=== PATIENT | male | born 1960 | race Caucasian/White ===

== ENCOUNTER 2020-01-13 09:46 | Outpatient (CLI) | payer MEDICARE, MEDICAID, SELFPAY ==
--- NOTE | 2020-01-13 09:55 | USCV_ITS ---
BarbaManny Age: 59 Gender: M : 1960 Exam Date: 01/13/2020 10:30 Ordering Phys: Jeffery Ribeiro MD Technologist: Susi Vazquez [place]am [place] [facility] [place]: TRANSIENT NEUROLOGICAL CHANGES Risk Factors: Previous Vascular Surgery: None Right Brachial BP: / Left Brachial BP: / Right Left Velocity (cm/s) Spectral Plaque Velocity (cm/s) Spectral Plaque Syst/Diast Broadening Syst/Diast Broadening 72.80/ 23.20 Prox CCA 96.00 / 28.90 75.00/ 25.40 Mid CCA 62.10 / 19.40 52.00/ 15.50 Distal CCA 60.60 / 23.30 34.20/ 16.60 Prox ICA 58.30 / 20.20 72.20/ 31.10 Mid ICA 61.40 / 27.20 64.50/ 27.20 Distal ICA 76.10 / 34.20 72.20 ECA 58.30 0.96 ICA/CCA 0.79 Antegrade Vertebral Antegrade 31.00/ 11.70 cm/s 28.30/ 12.30 cm/s Tri Subclavian Bi 80.80 109.4 0 CONCLUSIONS Right ICA stenosis <50%. Left ICA stenosis <50%. Normal antegrade Doppler flow noted in the right vertebral artery. Normal antegrade Doppler flow noted in the left vertebral artery. Varun Nogueria MD (Electronically Signed) Final Date: 13 Jan 2020 12:46 S
--- NOTE | 2020-01-13 11:01 | MR_ITS ---
WS: [id number] MRI HEAD WITH CONTRAST TECHNIQUE: Sagittal T1, T2 axial, T2 axial FLAIR, axial susceptibility weighted imaging, axial diffus ion weighted images, and coronal T2 images were obtained. Pre and post-T1 axial and post T1 coronal i mages. ADC and FSPGR images. CLINICAL INFORMATION: TRANSIENT NEUROLOGICAL CHANGES COMPARISON: MRA April 19, [address] December 10, 2005 FINDINGS: No evidence of restricted diffusion to suggest acute ischemia. Ventricular system and basal cisterns are patent. Minimal small vessel changes. Mild parenchymal volume loss. Prominent perivascular space left basal ganglia. No hemosiderin on susceptibly weighted images. Normal optic chiasm and pituitary infundibulum. No abnormal intracranial enhancement. Normal visualiz ed dural venous sinuses. Normal posterior fossa. Normal vascular flow voids at the skull base. Mild m ucosal thickening paranasal sinuses. Partial opacification of the mastoid air cells. MR/MR head wo/w con [id number] IMPRESSION: 1. No evidence of restricted diffusion to suggest acute ischemia. Ventricular system and basal cisterns are patent. 2. Minimal small vessel changes. Mild parenchymal volume loss. 3. No abnormal gadolinium enhancement. No enhancing lesions. 4. Mild mucosal thickening in the paranasal sinuses. Small bilateral mastoid e ffusions.
== END 2020-01-13 09:47 | disposition home or self-care (01) ==
LOC: RAD 09:51
PROVIDERS: Visit Provider Family Medicine
DX: R29.90 Unspecified symptoms and signs involving the nervous system (principal); R41.82 Altered mental status, unspecified; I65.23 Occlusion and stenosis of bilateral carotid arteries
CPT/HCPCS: 70553; 93880; A9579

== ENCOUNTER → 2020-10-12 16:18 | Outpatient (BNVA) | payer MEDICARE, MEDICAID, SELFPAY | PROVIDERS: Visit Provider Nurse Practitioner Family | DX: Z20.828 Contact with and (suspected) exposure to other viral communicable diseases (principal) | CPT/HCPCS: 87635 ==

== ENCOUNTER → 2020-11-06 14:51 | Outpatient (BNVA) | payer MEDICARE, MEDICAID, SELFPAY | PROVIDERS: Visit Provider Family Medicine | DX: N40.0 Benign prostatic hyperplasia without lower urinary tract symptoms (principal); K21.9 Gastro-esophageal reflux disease without esophagitis; J32.9 Chronic sinusitis, unspecified; B96.89 Other specified bacterial agents as the cause of diseases classified elsewhere; Z13.1 Encounter for screening for diabetes mellitus; Z13.6 Encounter for screening for cardiovascular disorders | CPT/HCPCS: 80053; 80061 ==

== ENCOUNTER 2021-01-02 21:24 | Emergency (ER) | payer MEDICARE, MEDICAID, SELFPAY ==
[2021-01-02] VITALS (7 sets, daily range): BP systolic 85–131; BP diastolic 57–86; PULSE 60–79; RESP 12–18; TEMP 36.1; O2SAT 94–100; BMI 32.3
--- NOTE | 2021-01-02 21:37 | ED_ITS ---
HPI - General Adult General: Chief complaint: Abdominal Pain Stated complaint: UPPER ABD PAIN, VARIOUS UPPER BODY PAINS Time Seen by Provider: 01/02/21 21:33 History of Present Illness: HPI narrative: Patient states he was at work and day had some muscle cramps in his arms when he is trying to pull some nails out of boards. Said his fingers kind of locked up and and forearms were tender. Said just recently started new blood pressure medication. Patient thought maybe got low on fluids or something. Denies any other problems presently. MD complaint: Muscle cramps Onset (ago): hour(s) Location: upper extremity Severity: mild Pain Consistency: now resolved Associated symptoms: Reports no associated symptoms; Deny chest pain, dyspnea, headache(s), nausea, rash or vomiting Review of Systems Const: Denies: fever(s), chills or body aches Eyes: Denies: change in vision or blurry vision ENMT: Denies: throat pain or nasal congestion Card: Denies: chest pain or dyspnea on exertion Resp: Denies: dyspnea, productive cough or non-productive cough GI: Denies: abdominal pain, nausea or vomiting : Denies: difficulty urinating Musc: Reports: muscle cramps (Forearms and hands); Denies: extremity pain Skin/Breast: Denies: rash Neuro: Denies: headache(s) Psych: Denies: anxiety or depression Tyrell/Lymph: Denies: easy bruising PFS ED PFSH: Medical History (Updated 01/03/21 @ 01:34 by GUTIERREZ iVrk) Arthritis BPH (benign prostatic hyperplasia) 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 Fibromyalgia GERD (gastroesophageal reflux disease) Hx-TIA (transient ischemic attack) Hyperlipemia Hypertension Surgical History H/O vasectomy History of hernia surgery Social History Smoking and tobacco status: never smoked Alcohol intake: never Physical Exam Const: COMMON NORMALS: no acute distress, average body habitus and patient oriented x3 HENMT: COMMON NORMALS: normocephalic HEAD & SCALP: normal to inspection and normocephalic FACE & SINUS: normal facial exam Eye: COMMON NORMALS: conjunctivae normal GENERAL EYE: appearance normal, both eyes and all related structures CONJUNCTIVA: Yes conjunctivae normal Neck/C-Spine: COMMON NORMALS: no JVD Chest: COMMONS NORMALS: normal inspection of the chest Resp: COMMON NORMALS: normal respiratory effort and clear to auscultation bilaterally AUSCULTATION: clear to auscultation bilaterally Cardio: COMMON NORMALS: no JVD, regular rate and regular rhythm RATE: regular rate RHYTHM: regular rhythm GI: COMMON NORMALS: Normal to inspection, nondistended, normoactive bowel sounds present Extremity: COMMON NORMALS: normal to inspection and full ROM Neuro: COMMON NORMALS: patient oriented x3 and CN's II-XII intact bilaterally Course Vital Signs: Vital signs: Vital Signs Temperature 97.0 F L 01/02/21 21:26 Pulse Rate 70 01/03/21 01:03 Respiratory Rate 18 01/03/21 01:03 Blood Pressure 129/85 01/03/21 01:03 Pulse Oximetry 96 01/03/21 01:03 MDM - General Adult MDM Narrative: Medical decision making narrative: Patient had a vasovagal episode prior to starting the IV. Patient laid flat IV start fluids administered patient feeling much better now EKG was done showed sinus rhythm. Blood pressures improve pulse in the 60s. Discussed labs patient condition with Dr. Dutton said to order more fluids recheck labs. Patient feeling much better [id number] Lab Data: Labs: Lab Results 01/02/21 01/02/21 01/02/21 Range/Units 21:50 21:50 21:50 WBC 11.6 H (4.0-10.0) 10^3/ uL RBC 4.82 (4.1-5.3) 10^6/u L Hgb 14.5 (11.7-16.6) g/dL Hct 44.2 (42.0-52.0) % MCV 91.7 (80-94) fL MCH 30.1 (28.0-34.0) pg MCHC 32.8 (30.0-36.0) g/dL RDW 13.2 (12.1-15.1) % Plt Count 245 (130-400) 10^3/c mm MPV 10.7 H (7.4-10.4) fL Neut % (Auto) 69.4 % Lymph % (Auto) 14.7 % Glascock % (Auto) 12.0 % Eos % (Auto) 2.8 % Baso % (Auto) 0.5 % Neut # (Auto) 8.07 H (1.8-7.7) 10^3/u L Lymph # (Auto) 1.7 (0.8-4.8) 10^3/u L Glascock # (Auto) 1.4 H (0.2-0.9) 10^3/u L Eos # (Auto) 0.3 (0.0-0.8) 10^3/u L Baso # (Auto) 0.1 (0.0-0.1) 10^3/u L Nucleated RBC % (a uto) 0 % Nucleated RBCs # 0.0 /100WBC Sodium 133 L (136-145) mmol/L Potassium 3.8 (3.5-5.1) mmol/L Chloride 99 (98-107) mmol/L Carbon Dioxide 19 L (22-29) mmol/L Anion Gap 18.8 (5-19) BUN 32 H (8-23) mg/dL Creatinine 1.8 H (0.7-1.2) mg/dL GFR Calculation 38.7 L (90-130) mL/min Glucose 126 H (65-115) mg/dL Calculated Osmolal ity 284 L (285-295) mOsm/k g Calcium 9.2 (8.5-10.5) mg/dL Total Bilirubin 0.3 (0.15-1.2) mg/dL AST 31 (0-40) U/L ALT 26 (0-41) U/L Alkaline Phosphata se 82 (40-130) IU/L Creatine Kinase 296 (39-308) U/L Total Protein 7.2 (6.6-8.7) g/dL Albumin 4.3 (3.5-5.2) g/dL Globulin 2.9 (1.3-4.6) g/dL Urine Color (Yellow) Urine Appearance (CLEAR) Urine pH (5-7) Ur Specific Gravit y (1.005-1.030) Urine Protein (Negative) Urine Glucose (UA) (Normal) Urine Ketones (Negative) Urine Blood (Negative) Urine Nitrate (Negative) Urine Bilirubin (Negative) Urine Urobilinogen (Negative) mg/dL Ur Leukocyte Leslie ase (Negative) 01/02/21 01/03/21 01/03/21 Range/Units 23:00 00:53 00:59 WBC (4.0-10.0) 10^3/ uL RBC (4.1-5.3) 10^6/u L Hgb (11.7-16.6) g/dL Hct (42.0-52.0) % MCV (80-94) fL MCH (28.0-34.0) pg MCHC (30.0-36.0) g/dL RDW (12.1-15.1) % Plt Count (130-400) 10^3/c mm MPV (7.4-10.4) fL Neut % (Auto) % Lymph % (Auto) % Glascock % (Auto) % Eos % (Auto) % Baso % (Auto) % Neut # (Auto) (1.8-7.7) 10^3/u L Lymph # (Auto) (0.8-4.8) 10^3/u L Glascock # (Auto) (0.2-0.9) 10^3/u L Eos # (Auto) (0.0-0.8) 10^3/u L Baso # (Auto) (0.0-0.1) 10^3/u L Nucleated RBC % (a uto) % Nucleated RBCs # /100WBC Sodium 135 L 137 (136-145) mmol/L Potassium 3.5 3.8 (3.5-5.1) mmol/L Chloride 99 105 (98-107) mmol/L Carbon Dioxide 22 23 (22-29) mmol/L Anion Gap 17.5 12.8 (5-19) BUN 31 H 28 H (8-23) mg/dL Creatinine 1.9 H 1.4 H (0.7-1.2) mg/dL GFR Calculation 36.3 L 51.7 L (90-130) mL/min Glucose 112 107 (65-115) mg/dL Calculated Osmolal ity 287 290 (285-295) mOsm/k g Calcium 9.3 7.8 L (8.5-10.5) mg/dL Total Bilirubin (0.15-1.2) mg/dL AST (0-40) U/L ALT (0-41) U/L Alkaline Phosphata se (40-130) IU/L Creatine Kinase 276 238 (39-308) U/L Total Protein (6.6-8.7) g/dL Albumin (3.5-5.2) g/dL Globulin (1.3-4.6) g/dL Urine Color Yellow (Yellow) Urine Appearance Clear (CLEAR) Urine pH 5 (5-7) Ur Specific Gravit y 1.010 (1.005-1.030) Urine Protein Neg (Negative) Urine Glucose (UA) Norm (Normal) Urine Ketones Negative (Negative) Urine Blood Neg (Negative) Urine Nitrate Negative (Negative) Urine Bilirubin Neg (Negative) Urine Urobilinogen Norm (Negative) mg/dL Ur Leukocyte Leslie ase Negative (Negative) EKG Data^: EKG 1: EKG interpretation date: 01/02/21 EKG interpretation time: 22:56 Computer generated interpretation: Normal sinus rhythm ventricular rate 65 bpm RI interval 138 ms QRS duration 98 ms QT 408 Discharge Plan Discharge Patient Disposition: Home Clinical Impression: Acute dehydration Condition: Stable Prescriptions: No Action diclofenac sodium 75 mg tablet,delayed release (DR/EC) 75 mg PO BID 30 Days Qty: 60 RF: 2 duloxetine 60 mg capsule,delayed release(DR/EC) 60 mg PO DAILY 30 Days Qty: 30 RF: 2 gabapentin 800 mg tablet 800 mg PO TID 30 Days Qty: 90 RF: 2 finasteride 5 mg tablet 5 mg PO DAILY 30 Days Qty: 30 RF: 2 omeprazole 40 mg capsule,delayed release(DR/EC) 40 mg PO DAILY 30 Days Qty: 30 RF: 5 lisinopril-hydrochlorothiazide 10-12.5 mg tablet 1 tab PO DAILY 30 Days Qty: 30 RF: 0 tramadol 50 mg tablet 50 mg PO DAILY PRN (Reason: severe pain) 7 Days Qty: 7 RF: 0 omega-3 fatty acids [Fish Oil Concentrate] 1,000 mg capsule 1,000 mg PO BID RF: 0 Discharge Orders: Discharge ED (Routine); Ordered 01/03/21 Ordered By: Damion Richards Discharge Diet: Usual diet and As Directed Discharge Activity: Increase activity as tolerated Patient Instructions: Dehydration (ED) Activity Restrictions/Additional Instructions: Make sure you drink plenty of fluids. Try to drink water as much as possible instead of tea or other liquids. Follow-up your family medical provider in a week for recheck your lab work. Coding Level of Care Code ED Unemployment Insurance Director for Chg Fwd Exam Comprehensive
[2021-01-02 21:59] LABS: Basophils # 0.1 10^3/uL (0.0-0.1); Basophils % 0.5 %; Eosinophils # 0.3 10^3/uL (0.0-0.8); Eosinophils % 2.8 %; Hematocrit 44.2 % (42.0-52.0); Hemoglobin 14.5 g/dL (11.7-16.6); Lymphocytes # 1.7 10^3/uL (0.8-4.8); Lymphocytes % 14.7 %; Mean Corpuscular HGB Conc 32.8 g/dL (30.0-36.0); Mean Corpuscular Hemoglobin 30.1 pg (28.0-34.0); Mean Corpuscular Volume 91.7 fL (80-94); Mean Platelet Volume 10.7 fL (7.4-10.4); Monocytes # 1.4 10^3/uL (0.2-0.9); Neutrophils # 8.07 10^3/uL (1.8-7.7); Neutrophils % 69.4 %; Nucleated Red Blood Cells % 0 %; Platelet Count 245 10^3/cmm (130-400); Red Blood Count 4.82 10^6/uL (4.1-5.3); Red Cell Distribution Width 13.2 % (12.1-15.1); White Blood Count 11.6 10^3/uL (4.0-10.0)
[2021-01-02 22:29] LABS: Alanine Aminotransferase 26 U/L (0-41); Albumin Level 4.3 g/dL (3.5-5.2); Alkaline Phosphatase 82 IU/L (40-130); Anion Gap 18.8 (5-19); Aspartate Amino Transferase 31 U/L (0-40); Blood Urea Nitrogen 32 mg/dL (8-23); Calcium 9.2 mg/dL (8.5-10.5); Carbon Dioxide 19 mmol/L (22-29); Chloride 99 mmol/L (98-107); Globulin 2.9 g/dL (1.3-4.6); Glomerular Filtration Rate 38.7 mL/min (90-130); Glucose 126 mg/dL (65-115); Osmolality Calculated 284 mOsm/kg (285-295); Potassium 3.8 mmol/L (3.5-5.1); Sodium 133 mmol/L (136-145); Total Bilirubin 0.3 mg/dL (0.15-1.2); Total Protein 7.2 g/dL (6.6-8.7)
[2021-01-02] MEDS: sodium chloride 0.9% 1,000 ML 999 ML IV ×2 (22:47→23:34)
--- NOTE | 2021-01-02 22:51 | ECG_ITS ---
[facility] Test Date: 2021-01-02 Pat Name: Manny Barba Department: Room: Gender: Male [employer] Product Consultant: : 1960 Requested By: Damion Richards Order Number: [id number] Jennifer MD: Ramone Shearer M.D. Measurements Intervals [place] Rate: 65 P: -35 OR: 138 QRS: 40 QRSD: 98 T: 23 QT: 408 QTc: 427 Interpretive Statements SINUS RHYTHM No previous ECG available for comparison Electronically Signed On 01-03-2021 18:28:32 CDT by Ramone Shearer M.D. [id number]
[2021-01-02 22:52] LABS: Creatine Phosphokinase 296 U/L (39-308)
[2021-01-02 23:40] LABS: Anion Gap 17.5 (5-19); Blood Urea Nitrogen 31 mg/dL (8-23); Calcium 9.3 mg/dL (8.5-10.5); Carbon Dioxide 22 mmol/L (22-29); Chloride 99 mmol/L (98-107); Creatine Phosphokinase 276 U/L (39-308); Glomerular Filtration Rate 36.3 mL/min (90-130); Glucose 112 mg/dL (65-115); Osmolality Calculated 287 mOsm/kg (285-295); Potassium 3.5 mmol/L (3.5-5.1); Sodium 135 mmol/L (136-145)
[2021-01-03] MEDS: sodium chloride 0.9% 1,000 ML 1500 ML IV (00:01)
[2021-01-03 00:02] VITALS: BP 111/66; PULSE 66; RESP 15; O2SAT 99
[2021-01-03 00:58] LABS: Add Urine Microscopic? NO; Charge for UA Resulting for Rev
[2021-01-03 01:00] LABS: Bilirubin Urine Neg (Negative); Blood Urine Neg (Negative); Glucose Urine UA Norm (Normal); Ketones Urine Negative (Negative); Leukocyte Esterase Urine Negative (Negative); Nitrate Urine Negative (Negative); Protein Urine Neg (Negative); Urine Appearance Clear (CLEAR); Urine Color Yellow (Yellow); Urobilinogen Urine Norm (Negative); pH Urine 5 (5-7)
[2021-01-03 01:03] VITALS: BP 129/85; PULSE 70; RESP 18; O2SAT 96
[2021-01-03 01:21] LABS: Anion Gap 12.8 (5-19); Blood Urea Nitrogen 28 mg/dL (8-23); Calcium 7.8 mg/dL (8.5-10.5); Carbon Dioxide 23 mmol/L (22-29); Chloride 105 mmol/L (98-107); Creatine Phosphokinase 238 U/L (39-308); Glomerular Filtration Rate 51.7 mL/min (90-130); Glucose 107 mg/dL (65-115); Osmolality Calculated 290 mOsm/kg (285-295); Potassium 3.8 mmol/L (3.5-5.1); Sodium 137 mmol/L (136-145)
== END 2021-01-03 01:41 | disposition home or self-care (01) ==
PROVIDERS: Emergency Provider Nurse Practitioner Family
DX: E86.0 Dehydration (principal); Z86.73 Personal history of transient ischemic attack (TIA), and cerebral infarction without residual deficits; E78.5 Hyperlipidemia, unspecified; I10 Essential (primary) hypertension
CPT/HCPCS: 36415; 80048; 80053; 81003; 82550; 85025; 93005; 96360; 96361; 99283; J7030

== ENCOUNTER → 2021-01-23 15:35 | Outpatient (BNVA) | payer MEDICARE, MEDICAID, SELFPAY | PROVIDERS: PCP Family Medicine; Visit Provider Family Medicine | DX: I10 Essential (primary) hypertension (principal); R74.8 Abnormal levels of other serum enzymes; Z12.5 Encounter for screening for malignant neoplasm of prostate | CPT/HCPCS: 80048; 84153 ==

== ENCOUNTER → 2021-01-29 08:26 | Outpatient (BNVA) | payer MEDICARE, MEDICAID, SELFPAY | PROVIDERS: PCP Family Medicine; Visit Provider Anesthesiology Pain Medicine | DX: Z02.89 Encounter for other administrative examinations (principal); M47.816 Spondylosis without myelopathy or radiculopathy, lumbar region; M48.062 Spinal stenosis, lumbar region with neurogenic claudication; M51.16 Intervertebral disc disorders with radiculopathy, lumbar region; M54.9 Dorsalgia, unspecified | CPT/HCPCS: 99204 ==

== ENCOUNTER 2021-02-19 14:48 | Outpatient (CLI) | payer MEDICARE, MEDICAID, SELFPAY ==
--- NOTE | 2021-02-19 14:57 | MR_ITS ---
WS: [id number] MRI LUMBAR SPINE NONCONTRAST HISTORY: M48.062 - Spinal stenosis, chronic low back pain radiating down both legs. COMPARISON: 01/01/2018 TECHNIQUE: Sagittal and axial multisequence imaging is submitted. Mild lumbar curvature similar to the prior study. No acute marrow edema or fractures. Moderate disc s pace narrowing and desiccation at L5-S1. Conus tapers normally and ends at L1. L1-L2: Extruded subligamentous disc extending into the RIGHT subarticular recess above the disc space is no longer present. This disc has probably been resorbed since the prior examination. There is a s mall disc protrusion in the RIGHT foramen causing mild encroachment and narrowing of the RIGHT subart icular recess. There is mild encroachment upon the L2 traversing nerve root. No high-grade stenosis. L2-L3: Mild annular disc bulging. LEFT paracentral disc protrusion with annular fissure has slightly increased in size and does abut the LEFT L3 nerve root. Slightly greater contact and mild LEFT subart icular recess narrowing as compared to the prior study. L3-L4: Diffuse annular disc bulging. There is a small LEFT subarticular protrusion with minimal impin gement on the traversing L4 nerve root. Similar to the prior study. L4-L5: Mild annular disc bulging and osteophytic ridging. Disc and osteophyte disease encroaching upo n the ventral thecal sac and narrowing the subarticular recesses. There is mild central, bilateral vela barticular recess and foraminal stenosis. Mild progression since the prior study. L5-S1: Moderate annular disc bulging with osteophytic ridging. Disc osteophyte material encroaching u asia the S1 and L5 nerve roots bilaterally. There is mild to moderate central and bilateral foraminal stenosis. Slight improvement in the RIGHT subarticular disc protrusion. Paravertebral soft tissues are normal. MR/MR lumbar spine wo con* [id number] IMPRESSION: 1. Multilevel degenerative disc disease and facet arthritis. 2. Previously described extruded disc into the RIGHT subarticular recess at L1 -2 has significantly improved. There is only minimal disc protrusion now presen t. The remaining disc protrusion is causing mild encroachment upon the RIGHT L2 traversing nerve root. 3. Mild central, bilateral subarticular recess and foraminal stenosis at L4-5. This stenoses and disc/osteophyte disease has slightly progressed. 4. Mild to moderate central and bilateral foraminal stenosis at L5-S1. Slight improvement in the RIGHT subarticular disc protrusion although there is still d isc encroachment upon the nerve root. Greater on the RIGHT than the LEFT. 5. Slight increase in size of the LEFT paracentral disc protrusion at L2-3 abu tting the LEFT L3 nerve root. 6. Small LEFT subarticular disc protrusion at L3-4 contacting the traversing L 4 nerve root. Unchanged.
== END 2021-02-19 14:49 | disposition home or self-care (01) ==
PROVIDERS: PCP Family Medicine; Visit Provider Anesthesiology Pain Medicine
DX: M48.062 Spinal stenosis, lumbar region with neurogenic claudication (principal); M51.36 Other intervertebral disc degeneration, lumbar region; M47.816 Spondylosis without myelopathy or radiculopathy, lumbar region; M48.061 Spinal stenosis, lumbar region without neurogenic claudication; M48.07 Spinal stenosis, lumbosacral region; M51.26 Other intervertebral disc displacement, lumbar region
CPT/HCPCS: 72148

== ENCOUNTER → 2021-02-26 08:22 | Outpatient (BNVA) | payer MEDICARE, MEDICAID, SELFPAY | PROVIDERS: PCP Family Medicine; Visit Provider Anesthesiology Pain Medicine | DX: M54.9 Dorsalgia, unspecified (principal); M51.16 Intervertebral disc disorders with radiculopathy, lumbar region; M47.816 Spondylosis without myelopathy or radiculopathy, lumbar region | CPT/HCPCS: 99214 ==

== ENCOUNTER → 2021-09-03 13:18 | Outpatient (BNVA) | payer MEDICARE, MEDICAID, SELFPAY | PROVIDERS: PCP Family Medicine; Visit Provider Nurse Practitioner Family | DX: Z20.822 Contact with and (suspected) exposure to COVID-19 (principal) | CPT/HCPCS: 87635 ==

== ENCOUNTER → 2021-11-07 14:05 | Outpatient (BNVA) | payer MEDICARE, MEDICAID, SELFPAY | PROVIDERS: PCP Family Medicine; Visit Provider Family Medicine | DX: K21.9 Gastro-esophageal reflux disease without esophagitis (principal); I10 Essential (primary) hypertension; N40.0 Benign prostatic hyperplasia without lower urinary tract symptoms; M79.7 Fibromyalgia; M19.90 Unspecified osteoarthritis, unspecified site; N40.1 Benign prostatic hyperplasia with lower urinary tract symptoms; R39.12 Poor urinary stream; Z12.5 Encounter for screening for malignant neoplasm of prostate; E78.1 Pure hyperglyceridemia; Z20.822 Contact with and (suspected) exposure to COVID-19 | CPT/HCPCS: 80053; 80061; 84153; 87635 ==

== ENCOUNTER → 2021-11-26 15:32 | Outpatient (BNVA) | payer MEDICARE, MEDICAID, SELFPAY | PROVIDERS: PCP Family Medicine; Visit Provider Nurse Practitioner Family | DX: M19.011 Primary osteoarthritis, right shoulder (principal); M25.511 Pain in right shoulder; M79.645 Pain in left finger(s); G89.29 Other chronic pain | CPT/HCPCS: 73030; 73130 ==

== ENCOUNTER → 2022-03-04 09:56 | Outpatient (BNVA) | payer MEDICARE, MEDICAID, SELFPAY | PROVIDERS: PCP Family Medicine; Visit Provider Emergency Medicine | DX: Z20.822 Contact with and (suspected) exposure to COVID-19 (principal); B34.9 Viral infection, unspecified | CPT/HCPCS: 87635 ==

== ENCOUNTER → 2022-04-11 08:34 | Outpatient (BNVA) | payer MEDICARE, MEDICAID, SELFPAY | PROVIDERS: PCP Family Medicine; Visit Provider Anesthesiology Pain Medicine | DX: M51.16 Intervertebral disc disorders with radiculopathy, lumbar region (principal); M47.816 Spondylosis without myelopathy or radiculopathy, lumbar region; M79.604 Pain in right leg; M79.605 Pain in left leg | CPT/HCPCS: 99214 ==

== ENCOUNTER → 2022-04-16 14:28 | Outpatient (BNVA) | payer MEDICARE, MEDICAID, SELFPAY | PROVIDERS: PCP Family Medicine; Visit Provider Family Medicine | DX: M79.7 Fibromyalgia (principal); N40.0 Benign prostatic hyperplasia without lower urinary tract symptoms; M19.90 Unspecified osteoarthritis, unspecified site; I10 Essential (primary) hypertension; K21.9 Gastro-esophageal reflux disease without esophagitis; M51.16 Intervertebral disc disorders with radiculopathy, lumbar region; E78.1 Pure hyperglyceridemia; N40.1 Benign prostatic hyperplasia with lower urinary tract symptoms; R39.12 Poor urinary stream | CPT/HCPCS: 80053 ==

== ENCOUNTER → 2022-05-02 13:31 | Outpatient (BNVA) | payer MEDICARE, MEDICAID, SELFPAY | PROVIDERS: PCP Family Medicine; Visit Provider Orthopaedic Surgery | DX: M48.061 Spinal stenosis, lumbar region without neurogenic claudication (principal); M54.2 Cervicalgia; M43.12 Spondylolisthesis, cervical region; M48.02 Spinal stenosis, cervical region; M48.07 Spinal stenosis, lumbosacral region; M43.16 Spondylolisthesis, lumbar region | CPT/HCPCS: 72050; 72110; 99204 ==

== ENCOUNTER 2022-05-17 06:00 | Outpatient (CLI) | payer MEDICARE, MEDICAID, SELFPAY | END 2022-05-17 06:01 | disposition home or self-care (01) | LOC: RT 06-06 11:02 | PROVIDERS: PCP Family Medicine; Visit Provider Orthopaedic Surgery | DX: Z01.89 Encounter for other specified special examinations (principal) | CPT/HCPCS: 93005 ==

== ENCOUNTER 2022-05-24 08:02 | Day surgery (SDC) | payer MEDICARE, MEDICAID, SELFPAY ==
[2022-05-17 11:00] VITALS: BMI 32.1
--- NOTE | 2022-05-17 11:22 | ECG_ITS ---
[facility] Test Date: 2022-05-17 Pat Name: Manny Barba Department: Room: Gender: Male [employer] Operator: : 1960 Requested By: Tc Diaz Order Number: [id number] Jennifer MD: Ramone Shearer M.D. Measurements Intervals [place] Rate: 72 P: 46 HI: 186 QRS: 26 QRSD: 103 T: 15 QT: 359 QTc: 393 Interpretive Statements SINUS RHYTHM WITH SINUS ARRHYTHMIA Compared to ECG 01/02/2021 22:47:42 No significant changes Electronically Signed On 05-17-2022 14:38:59 CDT by Ramone Shearer M.D. [id number]
[2022-05-17 11:55] LABS: Basophils % 0.6 %; Eosinophils # 0.4 10^3/uL (0.0-0.8); Eosinophils % 5.4 %; Hemoglobin 14.5 g/dL (11.7-16.6); Lymphocytes # 1.7 10^3/uL (0.8-4.8); Lymphocytes % 23.7 %; Mean Corpuscular Hemoglobin 30.7 pg (28.0-34.0); Mean Platelet Volume 10.6 fL (7.4-10.4); Monocytes # 0.8 10^3/uL (0.2-0.9); Monocytes % 11.2 %; Neutrophils # 4.18 10^3/uL (1.8-7.7); Neutrophils % 58.4 %; Nucleated Red Blood Cells % 0 %; Platelet Count 224 10^3/cmm (130-400); Red Blood Count 4.73 10^6/uL (4.1-5.3); Red Cell Distribution Width 13.7 % (12.1-15.1); White Blood Count 7.2 10^3/uL (4.0-10.0)
[2022-05-17 12:19] LABS: Blood Urea Nitrogen 21 mg/dL (8-23); Calcium 9.5 mg/dL (8.5-10.5); Carbon Dioxide 23 mmol/L (22-29); Chloride 100 mmol/L (98-107); Glomerular Filtration Rate 114.3 mL/min (90-130); Glucose 114 mg/dL (65-115); Osmolality Calculated 282 mOsm/kg (285-295); Sodium 134 mmol/L (136-145)
[2022-05-17 12:20] LABS: Anion Gap 15.2 (5-19); Potassium 4.2 mmol/L (3.5-5.1)
--- NOTE | 2022-05-17 16:19 | P.ANESASSM_ITS ---
Pre-Anesthetic Assessment Height/Weight: Height 1.73 m Weight 95.708 kg Operation Date: 05/24/22 08:20 Proposed Procedures p Lumbar Spine Decompression L4/5 L5/S1 77654/15070/M48.062(Bilateral) - Jak Slater, Familial anesthetic complications: none Was Beta Richard taken within 24 hours: N/A Was Clonidine taken within 24 hours: N/A Social No alcohol and No tobacco Exam alert, oriented x 3, clear to auscultation bilaterally and regular rate & rhythm Airway Submandibular: within normal limits Cervical ROM: Other (limited extension) Mallampati: Class II Dentition: chipped CV/HEM Coronary Artery Disease, Hypertension and Myocardial Infarction GI Gastroesophageal Reflux Disease Musc/skel Fibromyalgia, Lower Back Pain and Osteoarthritis/DJD Neuropsych Transient Ischemic Attack Anesthetic Plan ASA status: 3 Anesthesia: General Medications/Allergies Home Medications Medication Instructions Recorded Confirmed Last Taken Type omega-3 fatty acids 1,000 mg 1,000 mg PO DAILY 11/18/20 05/17/22 Unknown History capsule (Fish Oil Concentrate) acetaminophen 325 mg capsule 325 mg PO QID PRN Pain 03/04/22 05/17/22 Unknown History (Tylenol) aspirin 81 mg chewable tablet 81 mg PO DAILY 03/04/22 05/17/22 05/09/22 History albuterol sulfate 90 mcg/actuation 2 puff inhalation Q6H PRN 03/07/22 05/17/22 Unknown Rx aerosol inhaler shortness of breath or wheezing #8.5 grams methocarbamol 750 mg tablet 750 mg PO TID PRN back pain 14 03/19/22 05/17/22 Unknown Rx days #42 tabs finasteride 5 mg tablet 5 mg PO DAILY 90 days #90 tabs 04/16/22 05/17/22 Unknown Rx lisinopril 10 1 tab PO DAILY 90 days #90 tabs 04/16/22 05/17/22 Unknown Rx mg-hydrochlorothiazide 12.5 mg tablet omeprazole 40 mg capsule,delayed 40 mg PO DAILY 90 days #90 caps 04/16/22 05/17/22 Unknown Rx release ascorbic acid (vitamin C) 1,000 mg 1,000 mg PO DAILY 05/17/22 05/17/22 Unknown History tablet (Vitamin C) diclofenac sodium 75 mg 75 mg PO BID 05/17/22 05/17/22 Unknown History tablet,delayed release duloxetine 60 mg capsule,delayed 60 mg PO DAILY 05/17/22 05/17/22 Unknown History release (Cymbalta) gabapentin 800 mg tablet 800 mg PO TID 05/17/22 05/17/22 Unknown History Allergies Allergy/AdvReac Type Severity Reaction Status Date / Time No Known Allergies Allergy Verified 05/17/22 10:52 [facility] Anesthesia Medical History Arthritis BPH (benign prostatic hyperplasia) 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 Fibromyalgia GERD (gastroesophageal reflux disease) Hx-TIA (transient ischemic attack) Hyperlipemia Hypertension Surgical History H/O vasectomy History of hernia surgery Social History Smoking and tobacco status: never smoked Alcohol intake: never Data Anesthesia : 05/17/22 11:15 05/17/22 11:15 Short CBC 05/17/22 Range/Units 11:15 WBC 7.2 (4.0-10.0) 10^3/uL Hgb 14.5 (11.7-16.6) g/dL Hct 44.0 (42.0-52.0) % MCV 93.0 (80-94) fl Plt Count 224 (130-400) 10^3/cmm Neut % (Auto) 58.4 % Neut # (Auto) 4.18 (1.8-7.7) 10^3/uL BMP 05/17/22 11:15 Sodium 134 L Potassium 4.2 Chloride 100 Carbon Dioxide 23 BUN 21 Creatinine 0.7 Glucose 114 Calcium 9.5 Cardiac Studies: No Data to Display
[2022-05-24] VITALS (14 sets, daily range): BP systolic 101–126; BP diastolic 57–77; PULSE 65–88; RESP 18–21; TEMP 36.1–36.7; O2SAT 92–95
--- NOTE | 2022-05-24 | XR_ITS ---
WS: [id number] Lumbar spine, C-arm fluoroscopy views, 05/24/2022 Clinical Data: bilateral L3-L4....L4-L5 decompression Comparison: None. Findings: Dr. Slater performed a lumbar decompression XR/XR lumbar spine 1V [id number] Impression: Lumbar decompression.
--- NOTE | 2022-05-24 | SCC_ITS ---
Procedure done: 1. L3/4 laminectomy with partial facetectomies 2. L4/5 laminectomy with partial facetectomies 33.8 seconds of fluoroscopic guidance, for a cumulative dose of 19.12 mGy, was provided to Dr. Slater by the radiology department. C-arm images of the lumbar spine were saved for the patient's permanent record. [facility]
[2022-05-24] MEDS: sodium chloride 0.9% 1,000 ML 30 ML IV (08:26)
--- NOTE | 2022-05-24 08:53 | P.ANESUD_ITS ---
Pre-Anesthetic Update Pre-Anesthetic Assessment: Date of Surgery/Procedure: 05/24/22 Preop Phylicia gnosis: Lumbar stenosis, lumbar radiculopathy Proposed Procedure: Operation Date: 05/24/22 09:40 Proposed Procedures p Lumbar Spine Decompression L4/5 L5/S1 66589/51806/M48.062(Bilateral) - Jak Slater, DO Any changes to Pre-Anesthetic Assessment?: No Last Intake: Intake Last Liquid Date 05/23/22 Last Liquid Time 17:00 Last Solid Date 05/23/22 Last Solid Time 17:00 Vitals: Oxygen Delivery Me thod 05/24/22 08:13 Exam: Pre-Anes Outpt Exam: alert, oriented x 3, clear to auscultation bilaterally and regular rate & rhythm Cardiac Studies: No Data to Display
--- NOTE | 2022-05-24 10:00 | W.PM.OPSUD ---
Surgery/Procedure H&P Update DATE OF PROCEDURE: May 24, 2022 DATE H&P PERFORMED: 05/02/22 H&P UPDATE INFORMATION: I have reviewed H&P completed within last 30 days, I have examined patient prior to procedure and No changes to prior documentation PREOP DIAGNOSIS: Lumbar stenosis, lumbar radiculopathy PLANNED PROCEDURE: Operation Date: 05/24/22 09:40 Proposed Procedures p Lumbar Spine Decompression L4/5 L5/S1 27609/44555/M48.062(Bilateral) - Jak Slater DO
[2022-05-24] MEDS: ceFAZolin 2,000 MG in sodium chloride 0.9% (plus) 50 ML 100 MG IV (10:23)
--- NOTE | 2022-05-24 11:47 | P.OP_ITS ---
Operative Report Date of procedure: May 24, 2022 Pre-op diagnosis: Preop Diagnosis Lumbar stenosis, lumbar radiculopathy Post-op diagnosis: same Procedure done: 1. L3/4 laminectomy with partial facetectomies 2. L4/5 laminectomy with partial facetectomies Surgeon: Jak Slater Waste And Batting Waste Chopper: Jone Taveras Estimated blood loss (mL): 5 Procedure: 1. L3/4 laminectomy with partial facetectomies 2. L4/5 laminectomy with partial facetectomies Patient is brought to the operative suite. After undergoing anesthesia they are placed in the prone position. All areas of impingement are well padded. Patient is then prepped and draped in the normal sterile fashion. A skin incision is made over the L3/4 level. This is confirmed under c-arm guidance. A series of dilators are passed and the tubular retractor is docked on the L 3 lamina. A bovie is used to clear the soft tissue off the lamina and the L3/4 facet joint. A high speed salina is then used to perform the laminectomy and take down the medial aspect of the L 3/4 facet joint. A kerrison rongeure was then used to take down the remaining lamina and smooth the edged of the laminectomy up to the point where the ligamentum flavum attaches. Attention was then brought to the medial aspect of the facet joint. The remaining medial aspect of the superior and inferior aspect of the facet joint were taken down with the kerrison from the pedicle of L 3 to L 4. The facet joint had significant hypertrophy. Attention was then brought to the Ligamentum Flavum. The ligament was taken down from the lamina of L 3 to L 4 and out medially to the remaining facet joint. The ligament was thickened. The dura was then exposed. The dura was in good repair. The L 3 nerve was then traced with a curette out the L 3/4 foramen and found to be adequately decompressed. The L 4 nerve was traced with a curette around the L 4 pedicle. The lateral recess was opened with a kerrison helping to further decompress the L 4 nerve. The tubular retractor was then tilted to the contralateral side. The bovie was used to take down the soft tissue on the spinous process. The high speed salina was used to take down the spinous process and then the contralateral lamina of L 3. The kerrison rongeur was used to take down the remaining lamina to the point where the ligamentum flavum attached and the ligamentum flavum was taken down from L 3 to L 4. The kerrison rongeur was then used to reach across and take down the medial aspect of the contralateral L 3/4 facet joint.The currete was used to trace the contralateral L 3 nerve out the L 3/4 foramen to make sure it was decompressed adequatesly and the L 4 was traced around the L 4 pedicle. The lateral recess was opened further with the kerrison to ensure the L 4 is adequately decompressed. Wound is then irrigated copiously with saline and surgiflo is used to stop any bleeding. The tubular retractor is removed and the A skin incision is made over the L4/5 level. This is confirmed under c-arm guidance. A series of dilators are passed and the tubular retractor is docked on the L 4 lamina. A bovie is used to clear the soft tissue off the lamina and the L 4/5 facet joint. A high speed salina is then used to perform the laminectomy and take down the medial aspect of the L 4/5 facet joint. A kerrison rongeure was then used to take down the remaining lamina and smooth the edged of the laminectomy up to the point where the ligamentum flavum attaches. Attention was then brought to the medial aspect of the facet joint. The remaining medial aspect of the superior and inferior aspect of the facet joint were taken down with the kerrison from the pedicle of L 4 to L 5. The facet joint had significant hypertrophy. Attention was then brought to the Ligamentum Flavum. The ligament was taken down from the lamina of L 4 to L 5 and out medially to the remaining facet joint. The ligament was thickened. The dura was then exposed. The dura was in good repair. The L 4 nerve was then traced with a curette out the L 4/5 foramen and found to be adequately decompressed. The L 5 nerve was traced with a curette around the L 5 pedicle. The lateral recess was opened with a kerrison helping to further decompress the L 5 nerve. The tubular retractor was then tilted to the contralateral side. The bovie was used to take down the soft tissue on the spinous process. The high speed salina was used to take down the spinous process and then the contralateral lamina of L 4. The kerrison rongeur was used to take down the remaining lamina to the point where the ligamentum flavum attached and the ligamentum flavum was taken down from L 4 to L 5. The kerrison rongeur was then used to reach across and take down the medial aspect of the contralateral L 4/5 facet joint.The currete was used to trace the contralateral L 4 nerve out the L 4/5 foramen to make sure it was decompressed adequatesly and the L 5 was traced around the L 5 pedicle. The lateral recess was opened further with the kerrison to ensure the L 5 is adequately decompressed. Wound is then irrigated copiously with saline and surgiflo is used to stop any bleeding. The tubular retractor is removed and the wound is closed with vicryl and monocryl suture. Glue is then used to protect the wound. A sterile dressing is then placed. Patient was then placed in the supine position and transferred to the PACU in stable condition.
[2022-05-24] MEDS: fentaNYL 50 mcg/mL INJ 2mL IVP ×2 (12:05→12:20)
[2022-05-24] MEDS: HYDROcodone-acetaminophen 5-325 mg Tablet 1 TAB PO ×2 (12:50→13:48)
--- NOTE | 2022-05-24 13:51 | ANE.PACU2 ---
Inpatient post-anesthesia follow up: Airway intact: Yes Vital signs: Temperature 98.0 F Pulse Rate 88 Respiratory Rate 18 Blood Pressure 112/74 Pulse Oximetry 95 Oxygen Delivery Me thod Room Air Oxygen Flow Rate Fraction of Inspir ed Oxygen Hydration adequate: Yes Nausea and vomiting: No Pain level: 4 Mental status: Baseline
== END 2022-05-24 14:15 | disposition home or self-care (01) ==
PROVIDERS: Anesthesiology; PCP Family Medicine; Visit Provider Orthopaedic Surgery
PROC: (CPT 63005; principal; 2022-05-24 09:30)
DX: M48.061 Spinal stenosis, lumbar region without neurogenic claudication (principal); I25.10 Atherosclerotic heart disease of native coronary artery without angina pectoris; I10 Essential (primary) hypertension; I25.2 Old myocardial infarction; K21.9 Gastro-esophageal reflux disease without esophagitis; M79.7 Fibromyalgia; Z86.73 Personal history of transient ischemic attack (TIA), and cerebral infarction without residual deficits; Z79.82 Long term (current) use of aspirin; M19.90 Unspecified osteoarthritis, unspecified site; N40.0 Benign prostatic hyperplasia without lower urinary tract symptoms; E78.5 Hyperlipidemia, unspecified
CPT/HCPCS: 63047; 63048; 72020; 76000; 80048; 85025; J0330; J1100; J2250; J2405; J2710; J3010; J3490; J3535; J7030

== ENCOUNTER → 2022-06-11 14:52 | Outpatient (BNVA) | payer MEDICARE, MEDICAID, SELFPAY | PROVIDERS: PCP Family Medicine; Visit Provider Orthopaedic Surgery | DX: Z47.89 Encounter for other orthopedic aftercare (principal) | CPT/HCPCS: 99024 ==

== ENCOUNTER → 2022-07-16 14:29 | Outpatient (BNVA) | payer MEDICARE, MEDICAID, SELFPAY | PROVIDERS: PCP Family Medicine; Visit Provider Orthopaedic Surgery | DX: Z47.89 Encounter for other orthopedic aftercare (principal) | CPT/HCPCS: 99024 ==

== ENCOUNTER → 2022-07-30 12:43 | Outpatient (BNVA) | payer MEDICARE, MEDICAID, SELFPAY | PROVIDERS: PCP Family Medicine; Visit Provider Orthopaedic Surgery | DX: Z47.89 Encounter for other orthopedic aftercare (principal) | CPT/HCPCS: 99024 ==

== ENCOUNTER → 2022-11-19 15:22 | Outpatient (BNVA) | payer MEDICARE, MEDICAID, SELFPAY | PROVIDERS: PCP Family Medicine; Visit Provider Orthopaedic Surgery | DX: M51.16 Intervertebral disc disorders with radiculopathy, lumbar region (principal); M47.816 Spondylosis without myelopathy or radiculopathy, lumbar region; Z48.89 Encounter for other specified surgical aftercare | CPT/HCPCS: 72100; 99214 ==

== ENCOUNTER → 2022-12-03 11:27 | Outpatient (BNVA) | payer MEDICARE, MEDICAID, SELFPAY | PROVIDERS: PCP Family Medicine; Visit Provider Family Medicine | DX: I10 Essential (primary) hypertension (principal); K21.9 Gastro-esophageal reflux disease without esophagitis; N40.1 Benign prostatic hyperplasia with lower urinary tract symptoms; R39.12 Poor urinary stream; M19.90 Unspecified osteoarthritis, unspecified site; E78.1 Pure hyperglyceridemia; Z12.5 Encounter for screening for malignant neoplasm of prostate | CPT/HCPCS: 80053; 80061; G0103 ==

== ENCOUNTER 2022-12-13 11:17 | Outpatient (CLI) | payer MEDICARE, MEDICAID, SELFPAY ==
--- NOTE | 2022-12-13 11:45 | MR_ITS ---
WS: [id number] MRI LUMBAR SPINE NONCONTRAST TECHNIQUE: Sagittal T1, T2 and STIR imaging. Axial T1 and T2 imaging. CLINICAL INFORMATION: LEFT lower extremity pain COMPARISON: MRI February 19, 2021 FINDINGS: Mild lumbar curve. No acute compression. Postoperative changes LEFT L3-L4 hemilaminectomy and laminec tomies L4-L5 appear new from previous. L1-L2: Mild annular bulging. Slight narrowing of the RIGHT subarticular recess. Mild facet arthropath y. Mild RIGHT greater than LEFT foraminal narrowing. L2-L3: Small LEFT subarticular protrusion. Impingement on the traversing LEFT L3 nerve root in the vela barticular recess. Mild LEFT foraminal narrowing. Small protrusion has progressed compared to previou s. Moderate LEFT foraminal narrowing. This also appears progressed compared to previous. Moderate fac et arthropathy. L3-L4: Mild annular bulging. Slight effacement of ventral thecal sac. Moderate facet arthropathy. Mil d LEFT foraminal narrowing. L4-L5: Mild annular bulging with slight impingement traversing L5 nerve roots bilaterally. Laminectom y defects. Moderate facet arthropathy. Mild bilateral foraminal narrowing LEFT greater than RIGHT. Sp inal canal stenosis at this level has improved. L5-S1: Mild disc bulging with small central disc protrusion. Slight impingement on the traversing RIG HT greater than LEFT S1 nerve roots. Moderate RIGHT and mild LEFT foraminal narrowing. Moderate facet arthropathy. Visualized pelvic bony structures: Normal. Paravertebral soft tissues: Normal. MR/MR lumbar spine wo con* [id number] IMPRESSION: 1. Mild lumbar curve. No acute compression. 2. Progressed small LEFT subarticular disc protrusion L2-L3 impinges the trave rsing LEFT L3 nerve root in the subarticular recess. This is progressed compare d to previous. Progressed moderate LEFT L2-L3 foraminal narrowing with impingem ent on the exiting LEFT L2 nerve root. LEFT foraminal protrusion. 3. LEFT hemilaminectomy L3-L4 and laminectomies L4-L5. New from previous with improved central canal stenosis. Mild residual narrowing of the subarticular re cess at L4-L5. 4. Mild RIGHT L1-L2 foraminal narrowing with narrowing of the RIGHT subarticul ar recess. 5. Mild LEFT L3-L4 foraminal narrowing. 6. Mild bilateral L4-L5 foraminal narrowing with small foraminal protrusions. 7. Moderate RIGHT foraminal narrowing with impingement on the exiting RIGHT L5 nerve root. 8. Small central protrusion L5-S1 slightly impinges the traversing S1 nerve ro ots bilaterally unchanged.
== END 2022-12-13 11:18 | disposition home or self-care (01) ==
LOC: RAD 11:20
PROVIDERS: PCP Family Medicine; Visit Provider Orthopaedic Surgery
DX: M51.26 Other intervertebral disc displacement, lumbar region (principal); M48.061 Spinal stenosis, lumbar region without neurogenic claudication; M51.27 Other intervertebral disc displacement, lumbosacral region
CPT/HCPCS: 72148

== ENCOUNTER → 2022-12-20 11:02 | Outpatient (BNVA) | payer MEDICARE, MEDICAID, SELFPAY | PROVIDERS: PCP Family Medicine; Visit Provider Orthopaedic Surgery | DX: M54.16 Radiculopathy, lumbar region (principal) | CPT/HCPCS: 99214 ==

== ENCOUNTER → 2022-12-26 09:37 | Outpatient (BNVA) | payer MEDICARE, MEDICAID, SELFPAY | PROVIDERS: PCP Family Medicine; Visit Provider Clinical Nurse Specialist Adult Health | DX: I10 Essential (primary) hypertension (principal); Z01.818 Encounter for other preprocedural examination | CPT/HCPCS: 85025 ==

== ENCOUNTER 2023-01-08 09:24 | Day surgery (SDC) | payer MEDICARE, MEDICAID, SELFPAY ==
[2023-01-02 10:48] VITALS: BMI 31.3
--- NOTE | 2023-01-02 16:02 | ANES.PREANE2 ---
Pre-Anesthetic Assessment Height/Weight: Height 1.73 m Weight 93.44 kg Operation Date: 01/08/23 11:50 Proposed Procedures p left minimally invasive decompression with discectomy at L2-3, 48571, 53338, M54.16(Left) - Jak Slater DO s Discectomy(Left) - Jak Slater DO Familial anesthetic complications: none Was Beta Richard taken within 24 hours: N/A Was Clonidine taken within 24 hours: N/A Social No alcohol and No tobacco Exam alert, oriented x 3, clear to auscultation bilaterally and regular rate & rhythm Airway Submandibular: within normal limits Cervical ROM: within normal limits Mallampati: Class II Dentition: false CV/HEM Hypertension GI Gastroesophageal Reflux Disease Musc/skel Fibromyalgia, Lower Back Pain and Osteoarthritis/DJD Chronic pain Neuropsych Transient Ischemic Attack Anesthetic Plan ASA status: 3 Anesthesia: General Medications/Allergies Home Medications Medication Instructions Recorded Confirmed Last Taken Type omega-3 fatty acids 1,000 mg 1,000 mg PO DAILY 11/18/20 01/02/23 12/19/22 History capsule (Fish Oil Concentrate) aspirin 81 mg chewable tablet 81 mg PO DAILY 03/04/22 01/02/23 12/26/22 History ascorbic acid (vitamin C) 1,000 mg 1,000 mg PO DAILY 05/17/22 01/02/23 01/02/23 History tablet (Vitamin C) diclofenac sodium 75 mg 75 mg PO BID 90 days #180 tabs 12/03/22 01/02/23 01/02/23 Rx tablet,delayed release duloxetine 60 mg capsule,delayed 60 mg PO DAILY 90 days #90 caps 12/03/22 01/02/23 01/02/23 Rx release (Cymbalta) finasteride 5 mg tablet (Proscar) 5 mg PO DAILY 90 days #90 tabs 12/03/22 01/02/23 01/02/23 Rx lisinopril 10 1 tab PO DAILY 90 days #90 tabs 12/03/22 01/02/23 01/02/23 Rx mg-hydrochlorothiazide 12.5 mg tablet omeprazole 40 mg capsule,delayed 40 mg PO DAILY 90 days #90 caps 12/03/22 01/02/23 01/02/23 Rx release tamsulosin 0.4 mg capsule 0.4 mg PO DAILY 90 days #90 caps 12/03/22 01/02/23 01/02/23 Rx hydrocodone 5 mg-acetaminophen 325 1 - 2 tab PO Q6H PRN pain 5 days 01/02/23 01/02/23 12/30/22 Rx mg tablet #30 tabs Allergies Allergy/AdvReac Type Severity Reaction Status Date / Time No Known Allergies Allergy Verified 01/02/23 10:43 PFSH Anesthesia Medical History Arthritis BPH (benign prostatic hyperplasia) 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
[2023-01-08] VITALS (8 sets, daily range): BP systolic 103–149; BP diastolic 61–98; PULSE 70–90; RESP 16–18; TEMP 36.1–36.7; O2SAT 95–98
--- NOTE | 2023-01-08 | XR_ITS ---
WS: [id number] XR lumbar spine 1V [id number] REASON FOR EXAM: SURGICAL PROCEDURE FINDINGS: Surgical appliance overlying the left L3-L4 interspace. XR/XR lumbar spine 1V [id number] IMPRESSION: Intraoperative lumbar localization as above.
[2023-01-08] MEDS: sodium chloride 0.9% 1,000 ML 30 ML IV (09:57)
--- NOTE | 2023-01-08 10:12 | P.ANESUD_ITS ---
Pre-Anesthetic Update Pre-Anesthetic Assessment: Date of Surgery/Procedure: 01/08/23 Preop Phylicia gnosis: Lumbar radiculopathy Proposed Procedure: Operation Date: 01/08/23 11:00 Proposed Procedures p left minimally invasive decompression with discectomy at L2-3, 24594, 31138, M54.16(Left) - Jak H Nohemy, DO s Discectomy(Left) - Jak H Nohemy, DO Any changes to Pre-Anesthetic Assessment?: No Last Intake: Intake Last Liquid Date 01/07/23 Last Liquid Time 21:00 Last Solid Date 01/07/23 Last Solid Time 20:00 Vitals: Temperature 98.1 F 01/08/23 09:53 Temperature Source Temporal Artery S can 01/08/23 09:53 Pulse Rate 71 01/08/23 09:53 Respiratory Rate 18 01/08/23 09:53 Blood Pressure 149/98 01/08/23 09:53 Blood Pressure Missy n 115 01/08/23 09:53 Pulse Oximetry 95 01/08/23 09:53 Oxygen Delivery Me thod Room Air 01/08/23 10:01 Exam: Pre-Anes Outpt Exam: alert, oriented x 3, clear to auscultation bilaterally and regular rate & rhythm Cardiac Studies: No Data to Display
[2023-01-08 10:30] LABS: Blood Urea Nitrogen 17 mg/dL (8-23); Calcium 9.4 mg/dL (8.5-10.5); Carbon Dioxide 23 mmol/L (22-29); Chloride 102 mmol/L (98-107); Glomerular Filtration Rate 114.3 mL/min (90-130); Glucose 97 mg/dL (65-115); Osmolality Calculated 285 mOsm/kg (285-295); Sodium 137 mmol/L (136-145)
--- NOTE | 2023-01-08 10:34 | W.PM.OPSUD ---
Surgery/Procedure H&P Update DATE OF PROCEDURE: January 08, 2023 DATE H&P PERFORMED: 12/20/22 H&P UPDATE INFORMATION: I have reviewed H&P completed within last 30 days, I have examined patient prior to procedure and No changes to prior documentation PREOP DIAGNOSIS: Lumbar radiculopathy PLANNED PROCEDURE: Operation Date: 01/08/23 11:00 Proposed Procedures p left minimally invasive decompression with discectomy at L2-3, 99151, 59443, M54.16(Left) - Jak Slater DO s Discectomy(Left) - aJk Slater DO
[2023-01-08 11:03] LABS: Anion Gap 15.6 (5-19); Potassium 3.6 mmol/L (3.5-5.1)
[2023-01-08] MEDS: ceFAZolin 2,000 MG in sodium chloride 0.9% (plus) 50 ML 100 MG IV (11:24)
[2023-01-08] MEDS: lidocaine-epi 1% 20 mL INJ INJECTION (12:00)
--- NOTE | 2023-01-08 12:51 | P.OP_ITS ---
Operative Report Date of procedure: January 08, 2023 Pre-op diagnosis: Preop Diagnosis lumbar stenosis with neurogenic claudication Post-op diagnosis: same Procedure done: 1. L2/3 laminectomy with partial facetectomy and diskectomy Surgeon: Jak Slater Billet Examiner: Jone Taveras Billet Examiner: The surgical elastic knitter hand frame, Jone Taveras, HILARIO was needed for his expertise under the microscope. He was important and necessary throughout the procedure to complete in a safe and timely manner. He assisted with patient positioning prepping and draping tissue retraction suctioning of the operative field protection of the dural sac and tissue closure Estimated blood loss (mL): 25 Procedure: 1. L2/3 laminectomy with partial facetectomy and diskectomy Patient is brought to the operative suite. After undergoing anesthesia they are placed in the prone position. All areas of impingement are well padded. Patient is then prepped and draped in the normal sterile fashion. A skin incision is made over the L2/3 level. This is confirmed under c-arm guidance. A series of dilators are passed and the tubular retractor is docked on the L2 lamina. A bovie is used to clear the soft tissue off the lamina and the L 2/3 facet joint. A high speed salina is then used to perform the laminectomy and take down the medial aspect of the L 2/3 facet joint. A kerrison rongeure was then used to take down the remaining lamina and smooth the edge of the laminectomy up to the point where the ligamentum flavum attaches. Attention was then brought to the medial aspect of the facet joint. The remaining medial aspect of the superior and inferior aspect of the facet joint were taken down with the kerrison from the pedicle of L2 to L 3. The facet joint had significant hypertrophy. Attention was then brought to the Ligamentum Flavum. The ligament was taken down from the lamina of L2 to L3 and out medially to the remaining facet joint. The ligament was thick. The dura was then exposed. The dura was in good repair. The thecal sac was retracted. The disc was identified. Small knife was used to cut the annulus and small pieces of disc were removed. The disc was irrigated and more fragments removed. Once all the loose disc was removed. The L2 nerve was then traced with a curette out the L2/3 foramen and found to be adequately decompressed. The L3 nerve was traced with a curette around the L3 pedicle. The lateral recess was opened with a kerrison helping to further decompress the L3 nerve. Wound is then irrigated copiously with saline and surgiflo is used to stop any bleeding. The tubular retractor is removed and the wound is closed with vicryl and monocryl suture. Glue is then used to protect the wound. A sterile dressing is then placed. Patient was then placed in the supine position and transferred to the PACU in stable condition.
[2023-01-08] MEDS: HYDROcodone-acetaminophen 10-325 mg Tablet 1 TAB PO (13:09)
--- NOTE | 2023-01-08 14:07 | ANE.PACU2 ---
Inpatient post-anesthesia follow up: Airway intact: Yes Vital signs: Temperature 97.0 F Pulse Rate 70 Respiratory Rate 18 Blood Pressure 122/73 Pulse Oximetry 95 Oxygen Delivery Me thod Room Air Oxygen Flow Rate 6 Fraction of Inspir ed Oxygen Hydration adequate: Yes Nausea and vomiting: No Pain level: 1 Mental status: Baseline
== END 2023-01-08 14:00 | disposition home or self-care (01) ==
PROVIDERS: PCP Family Medicine; Visit Provider Orthopaedic Surgery
PROC: (CPT 63005; principal; 2023-01-08 10:50)
PROC: (CPT 63030; 2023-01-08 10:50)
DX: M51.16 Intervertebral disc disorders with radiculopathy, lumbar region (principal); Z79.82 Long term (current) use of aspirin; Z79.891 Long term (current) use of opiate analgesic; K21.9 Gastro-esophageal reflux disease without esophagitis; E78.5 Hyperlipidemia, unspecified; I10 Essential (primary) hypertension
CPT/HCPCS: 63030; 72020; 76000; 80048; J0690; J1100; J2250; J2405; J2710; J3010; J3490; J7030

== ENCOUNTER → 2023-01-23 09:57 | Outpatient (BNVA) | payer MEDICARE, MEDICAID, SELFPAY | PROVIDERS: PCP Family Medicine; Visit Provider Physician Assistant | DX: Z98.890 Other specified postprocedural states (principal) | CPT/HCPCS: 99024 ==

== ENCOUNTER → 2023-05-27 10:35 | Outpatient (BNVA) | payer MEDICARE, MEDICAID, SELFPAY | PROVIDERS: PCP Family Medicine; Visit Provider Family Medicine | DX: K21.9 Gastro-esophageal reflux disease without esophagitis (principal); N40.1 Benign prostatic hyperplasia with lower urinary tract symptoms; R39.12 Poor urinary stream; I10 Essential (primary) hypertension; M19.90 Unspecified osteoarthritis, unspecified site; N40.0 Benign prostatic hyperplasia without lower urinary tract symptoms; N53.19 Other ejaculatory dysfunction; N64.4 Mastodynia; M79.7 Fibromyalgia | CPT/HCPCS: 81000 ==

== ENCOUNTER 2023-06-16 07:04 | Emergency (ER) | payer MEDICARE, MEDICAID, SELFPAY ==
[2023-06-16 07:05] VITALS: BP 137/98; PULSE 80; TEMP 36.9; O2SAT 99; BMI 31.9
--- NOTE | 2023-06-16 07:21 | ED_ITS ---
HPI - Back Pain/Injury General: Chief Complaint: Back Pain/Injury Stated Complaint: lower back pain Time Seen by Provider: 06/16/23 07:07 Source: patient Mode of arrival: EMS History of Present Illness: 63-year-old male presents emergency room via EMS with complaint of back pain. He states he moved a mattress about a week ago has had back pain since that time. He has not had any urinary retention or fecal incontinence. No saddle paresthesias. He has pain intermittently radiating down his legs. He has previously had discectomies and lumbar decompression surgeries with Dr. Slater including earlier this year. MD elicited complaint: back pain Pertinent past history: prior back pain and back surgery Onset (ago): week(s) (1) Timing: constant Severity: moderate Quality: spasming and throbbing Location: lumbar spine Radiation: left upper leg Exacerbating factors: movement Relieving factors: none Context: while lifting, turning/twisting and bending Associated symptoms: Reports difficulty walking, tingling/numbness/burning and weakness; Deny abdominal pain, chills, change in bowel habits, dysuria, fecal incontinence, fever(s), urinary frequency, urinary urgency or vomiting Review of Systems Const: Denies: fever(s) or chills Card: Denies: chest pain Resp: Denies: dyspnea GI: Denies: abdominal pain, vomiting, fecal incontinence or change in bowel habits : Denies: dysuria or urinary urgency Musc: Denies: neck pain or back pain Skin/Breast: Denies: rash Neuro: Reports: difficulty walking PFSH ED PFSH: Medical History Arthritis BPH (benign prostatic hyperplasia) 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 Fibromyalgia GERD (gastroesophageal reflux disease) Hx-TIA (transient ischemic attack) more than 20 years ago Hyperlipemia Hypertension Surgical History H/O vasectomy History of hernia surgery Family History Brother Blood clot in vein Other Cancer Chronic kidney disease (CKD) Diabetes Hypertension Social History Smoking and tobacco status: never smoked Alcohol intake: never Substance/Drug Use: never Physical Exam Const: GENERAL APPEARANCE: cooperative and comfortable ORIENTATION/CO NSCIOUSNESS: Yes awake, Yes oriented to person, Yes oriented to place and Yes oriented to time HENMT: COMMON NORMALS: normocephalic, atraumatic and hearing grossly normal bilaterally HEAD & SCALP: normocephalic and atraumatic Resp: COMMON NORMALS: normal respiratory effort, No retractions, No use of accessory muscles and clear to auscultation bilaterally AUSCULTATION: clear to auscultation bilaterally Cardio: COMMON NORMALS: regular rate, regular rhythm and No murmurs present (Cardio) RATE: regular rate RHYTHM: regular rhythm GI: COMMON NORMALS: Soft to palpation and No hepatosplenomegaly present AUSCULTATION: Yes normoactive bowel sounds PALPATION: Yes Soft to palpation, No Tenderness to palpation present (GI), No Guarding due to palpation present (GI) and Yes No hepatosplenomegaly present Extremity: COMMON NORMALS: normal to inspection, capillary refill normal, no clubbing, cyanosis or edema, no calf tenderness and no pedal edema Neuro: SENSORIUM/ORIENTATION: Yes oriented to person, Yes oriented to place and Yes oriented to time MOTOR EXAM: 5/5 motor strength present throughout DEEP TENDON REFLEXES: Right patellar reflex intensity grade: 2+ and Left patellar reflex intensity grade: 2+ Skin: COMMON NORMALS: no rashes or lesions noted GENERAL SKIN EXAM: no rashes or lesions noted Course Vital Signs: Vital signs: Vital Signs Temperature 98.5 F 06/16/23 07:05 Pulse Rate 80 06/16/23 07:05 Blood Pressure 137/98 06/16/23 07:05 Pulse Oximetry 99 06/16/23 07:05 Oxygen Delivery Me thod Room Air 06/16/23 07:05 MDM - Back Pain/Injury Medical Decision Making Improved with medications given. Reviewed with the patient at this point plain films and CT would not really contribute much to his symptoms this is most like ly aggravation of his chronic underlying back pain steroid taper tizanidine continue diclofenac continue other medicines previously prescribed for the patient follow-up with his primary care doctor return if is worsening problems. Differential Diagnosis Likely lumbar radiculopathy, sciatica and strain of lumbar region Medical Records I reviewed the patient's medical records. No radiology studies performed this visit Discharge Plan Discharge Patient Disposition: Home Clinical Impression: Strain of lumbar region, Status post lumbar laminectomy Condition: Stable Prescriptions: New prednisone 20 mg tablet 20 mg PO TID Qty: 15 0RF Rx Instructions: 1 p.o. 3 times daily x3 days, 1 p.o. twice daily x2 days, 1 p.o. daily x2 days tizanidine 4 mg tablet 4 mg PO Q6H PRN (Reason: muscle spasticity) Qty: 20 0RF Rx Instructions: do not exceed 3 doses per 24 hrs No Action aspirin 81 mg tablet,chewable 81 mg PO DAILY omeprazole 40 mg capsule,delayed release(DR/EC) 40 mg PO DAILY 90 Days Qty: 90 1RF tamsulosin 0.4 mg capsule 0.4 mg PO DAILY 90 Days Qty: 90 1RF lisinopril-hydrochlorothiazide 10-12.5 mg tablet 1 tab PO DAILY 90 Days Qty: 90 1RF Proscar 5 mg tablet 5 mg PO DAILY 90 Days Qty: 90 1RF duloxetine [Cymbalta] 60 mg capsule,delayed release(DR/EC) 60 mg PO DAILY 90 Days Qty: 90 1RF diclofenac sodium 75 mg tablet,delayed release (DR/EC) 75 mg PO BID 90 Days Qty: 180 1RF Rx Instructions: TAKE ONE TABLET BY MOUTH TWICE A DAY TAKE WITH FOOD omega-3 fatty acids [Fish Oil Concentrate] 1,000 mg capsule 1,000 mg PO DAILY ascorbic acid (vitamin C) [Vitamin C] 1,000 mg Tablet 1,000 mg PO DAILY Discharge Orders: Discharge ED (Routine); Ordered 06/16/23 Ordered By: Alex De Leon Referrals: Shruthi Sim MD [Primary Care Provider] - Discharge Diet: Usual diet Discharge Activity: Increase activity as tolerated Patient Instructions: Back Pain (ED), Opioid Safety, Pain Management Coding Level of Care Code ED Gas Line Installer for Wade Barros
[2023-06-16] MEDS: dexamethasone 10 mg/mL INJ IM (07:24)
[2023-06-16] MEDS: orphenadrine 30 mg/mL Inj 2 mL 60 MG IM (07:24)
== END 2023-06-16 08:50 | disposition home or self-care (01) ==
PROVIDERS: Emergency Provider Family Medicine; PCP Family Medicine
DX: S39.012A Strain of muscle, fascia and tendon of lower back, initial encounter (principal); Z98.890 Other specified postprocedural states; Z79.82 Long term (current) use of aspirin; Z86.73 Personal history of transient ischemic attack (TIA), and cerebral infarction without residual deficits; I10 Essential (primary) hypertension; E78.5 Hyperlipidemia, unspecified; X50.0XXA Overexertion from strenuous movement or load, initial encounter
CPT/HCPCS: 96372; 99284; J1100; J2360

== ENCOUNTER → 2023-06-25 10:35 | Outpatient (BNVA) | payer MEDICARE, MEDICAID, SELFPAY | PROVIDERS: PCP Family Medicine; Visit Provider Physician Assistant | DX: Z98.890 Other specified postprocedural states (principal); M54.16 Radiculopathy, lumbar region | CPT/HCPCS: 72110; 99024 ==

== ENCOUNTER 2023-07-02 09:24 | Emergency (ER) | payer MEDICARE, MEDICAID, SELFPAY ==
--- NOTE | 2023-07-02 09:29 | ED_ITS ---
HPI - Back Pain/Injury General: Chief Complaint: Back Pain/Injury Stated Complaint: Back Pain Time Seen by Provider: 07/02/23 09:28 Source: patient Mode of arrival: EMS Limitations: no limitations History of Present Illness: Patient is a 63-year-old male who presents to ED today with a complaint of lower back pain. Patient states he initially injured his back earlier this month after lifting/moving a heavy mattress. He was seen in the emergency department here on 06/16. He then followed up with orthopedics on 06/25. He has been treated with anti-inflammatories, steroids, and muscle relaxers. He feels like pain has never really improved and worsened approximately 5 days ago. He states he is now having trouble walking and getting out of bed secondary to the pain. He complains of pain radiating down bilateral lower extremities all the way to my feet . Patient is status post L2/3 laminectomy with partial facetectomy and discectomy performed by Dr. Slater on 01/08/23. He denies any bowel/bladder incontinence/retention. Denies saddle anesthesia. MD elicited complaint: back pain Pertinent past history: prior back pain and back surgery Onset (ago): week(s) Timing: progressively worsening Severity: severe Similar Symptoms Previously: Yes Location: lumbar spine Radiation: left leg below the knee and right leg below the knee Exacerbating factors: movement, walking and lifting Relieving factors: none Associated symptoms: Reports difficulty walking; Deny abdominal pain, chills, dysuria, fatigue, fever(s), hematuria, nausea, urinary urgency or vomiting Treatments prior to arrival: NSAIDS and other medications Work related injury: No Review of Systems Const: Denies: fever(s), chills, body aches, fatigue or malaise Card: Denies: chest pain Resp: Denies: dyspnea GI: Reports: constipation; Denies: abdominal pain, nausea, vomiting, diarrhea, GI cramping, rectal pain, hematochezia or melena : Denies: flank pain, difficulty urinating, dysuria, urinary frequency, urinary urgency, urinary hesitancy, change in urine stream, urinary incontinence or hematuria Musc: Reports: back pain; Denies: neck pain, extremity pain, extremity swelling, joint pain, joint swelling, joint redness or joint warmth Skin/Breast: Denies: rash Neuro: Reports: difficulty walking; Denies: headache(s), numbness in extremities, weakness in extremities or sensory changes PFSH ED PFSH: Medical History Arthritis BPH (benign prostatic hyperplasia) 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 Fibromyalgia GERD (gastroesophageal reflux disease) Hx-TIA (transient ischemic attack) more than 20 years ago Hyperlipemia Hypertension Surgical History H/O vasectomy History of hernia surgery Family History Brother Blood clot in vein Other Cancer Chronic kidney disease (CKD) Diabetes Hypertension Social History Smoking and tobacco/nicotine status: never used tobacco/nicotine Alcohol intake: never Substance/Drug Use: never Physical Exam Const: COMMON NORMALS: average body habitus, patient oriented x3, no limitations, alert and well nourished GENERAL APPEARANCE: cooperative and in distress (appears uncomfortable secondary to pain) ORIENTATION/CONSCIOUSNESS: Yes awake, Yes oriented to person, Yes oriented to place and Yes oriented to time HENMT: COMMON NORMALS: normocephalic and atraumatic HEAD & SCALP: normal to inspection, normocephalic and atraumatic Neck/C-Spine: COMMON NORMALS: full ROM, no lymphadenopathy and no meningeal signs Resp: COMMON NORMALS: normal respiratory effort Cardio: COMMON NORMALS: regular rate and regular rhythm RATE: regular rate RHYTHM: regular rhythm GI: COMMON NORMALS: Normal to inspection, nondistended, normoactive bowel sounds present, Soft to palpation and non-tender PALPATION: Yes Soft to palpation : COMMON NORMALS: Yes no CVA tenderness BLADDER/KIDNEY EXAM: Yes no CVA tenderness Back/Pelvis: COMMON NORMALS: no CVA tenderness THORACIC SPINE/UPPER BACK: Yes normal to inspection, No thoracic spinal tenderness, No paraspinal muscle tenderness and No paraspinal muscle spasm LUMBAR SPINE/LOWER BACK: Yes ROM limited, Yes pain with ROM, Yes lumbar spinal tenderness, No paraspinal muscle spasm, No mass present and Yes straight leg raise positive right PELVIS: Yes buttocks normal, No sciatic notch tenderness and Yes Other pelvic findings (psoriasis to L gluteal cleft ) SACROILIAC JOINTS: Yes SI joints normal SACRUM: no tenderness COCCYX: Other pelvic findings (psoriasis to L gluteal cleft ) Extremity: COMMON NORMALS: normal to inspection, full ROM, capillary refill normal, no joint enlargement, no clubbing, cyanosis or edema, no calf tenderness and no pedal edema NARRATIVE EXTREMITY EXAM: DP/PT pulses palpated bilaterally GENERAL: Yes normal exam except as noted Neuro: COMMON NORMALS: patient oriented x3, moves all extremities, no focal motor deficits and no sensory deficits noted SENSORIUM/ORIENTATION: Yes alert, Yes oriented to person, Yes oriented to place and Yes oriented to time MENINGEAL SIGNS: Yes no meningeal signs GAIT: Yes Unable to assess gait MOTOR EXAM: Other motor observations present (decreased strength against resistance R LE secondary to pain) DEEP TENDON REFLEXES: Right patellar reflex intensity grade: 2+ and Left patellar reflex intensity grade: 2+ Skin: GENERAL SKIN EXAM: other (chronic psoriasis plaques ) TRAUMA: no lacerations or abrasions Course Vital Signs: Vital signs: Vital Signs Temperature 98.2 F 07/02/23 09:31 Pulse Rate 77 07/02/23 11:02 Respiratory Rate 16 07/02/23 11:02 Blood Pressure 117/75 07/02/23 11:02 Pulse Oximetry 100 07/02/23 11:02 Oxygen Delivery Me thod Room Air 07/02/23 10:07 MDM - Back Pain/Injury Medical Decision Making Patient report feeling better after IV medications given here. He was ambulatory here in the emergency department without assistance. We will have patient follow-up with Dr. Slater's office sooner than his scheduled appointment which is currently at the end of July. He states he is out of his Zanaflex and did not really feel like he got much benefit from this anyway. We will switch him to Robaxin to see if he gets some relief with this. He has been on two rounds of steroids now so I do not feel like he needs anything additional. He is still taking an anti-inflammatory. We will prescribe him a small amount of pain medications he can take for severe pain. No red flag signs/symptoms on history or physical exam. Return ED precautions given. No radiology studies performed this visit Discharge Plan Discharge Patient Disposition: Home Clinical Impression: Lumbar disc disease with radiculopathy Condition: Stable Prescriptions: New methocarbamol 500 mg tablet 1,000 mg PO Q8H Qty: 30 0RF hydrocodone-acetaminophen 5-325 mg tablet 1 tab PO Q6H PRN (Reason: pain) Qty: 14 0RF Discontinued tizanidine 4 mg tablet 4 mg PO Q6H PRN (Reason: muscle spasticity) Qty: 20 0RF Rx Instructions: do not exceed 3 doses per 24 hrs No Action aspirin 81 mg tablet,chewable 81 mg PO DAILY prednisone 20 mg tablet 20 mg PO DAILY Qty: 15 0RF Rx Instructions: 60mg X3 days 40mg X2 days 20mg X 2days omeprazole 40 mg capsule,delayed release(DR/EC) 40 mg PO DAILY 90 Days Qty: 90 1RF tamsulosin 0.4 mg capsule 0.4 mg PO DAILY 90 Days Qty: 90 1RF lisinopril-hydrochlorothiazide 10-12.5 mg tablet 1 tab PO DAILY 90 Days Qty: 90 1RF Proscar 5 mg tablet 5 mg PO DAILY 90 Days Qty: 90 1RF duloxetine [Cymbalta] 60 mg capsule,delayed release(DR/EC) 60 mg PO DAILY 90 Days Qty: 90 1RF diclofenac sodium 75 mg tablet,delayed release (DR/EC) 75 mg PO BID 90 Days Qty: 180 1RF Rx Instructions: TAKE ONE TABLET BY MOUTH TWICE A DAY TAKE WITH FOOD omega-3 fatty acids [Fish Oil Concentrate] 1,000 mg capsule 1,000 mg PO DAILY prednisone 20 mg tablet 20 mg PO TID Qty: 15 0RF Rx Instructions: 1 p.o. 3 times daily x3 days, 1 p.o. twice daily x2 days, 1 p.o. daily x2 days ascorbic acid (vitamin C) [Vitamin C] 1,000 mg Tablet 1,000 mg PO DAILY Discharge Orders: Discharge ED (Routine); Ordered 07/02/23 Ordered By: Kacy Darnell Referrals: Shruthi Sim MD [Primary Care Provider] - Patient Instructions: Opioid Safety, Pain Management Activity Restrictions/Additional Instructions: As we discussed I will place a referral with case management to try to get you to see Dr. Slater's office sooner than your scheduled appointment. You may take medications prescribed to use sparingly/for severe pain. You may return to the emergency department for worsening back pain, inability to ambulate, inability to urinate/bowel incontinence, fevers, or any other concerns you may have. Hope you begin to feel better soon. Coding Level of Care Code ED Cloth Wire Weaver for Wade Barros
[2023-07-02 09:31] VITALS: BP 130/98; PULSE 83; RESP 18; TEMP 36.8; O2SAT 98
[2023-07-02 09:38] VITALS: BP 130/98; PULSE 80; RESP 20; O2SAT 100
[2023-07-02] MEDS: ketorolac 60 mg/2 mL INJ 30 MG IVP (09:47)
[2023-07-02 09:49] VITALS: RESP 20; O2SAT 100
[2023-07-02] MEDS: morphine 4 mg/mL SDV 1 mL IVP (09:49)
[2023-07-02] MEDS: orphenadrine 30 mg/mL Inj 2 mL 60 MG IM (09:50)
[2023-07-02 10:07] VITALS: BP 134/88; PULSE 80; RESP 18; O2SAT 99
[2023-07-02 11:02] VITALS: BP 117/75; PULSE 77; RESP 16; O2SAT 100
--- NOTE | 2023-07-02 11:03 | DCPLANNER ---
Message sent to Ortho for referral to see Dr. Slater for sever pain.
== END 2023-07-02 11:03 | disposition home or self-care (01) ==
PROVIDERS: Emergency Provider Physician Assistant; PCP Family Medicine
DX: M51.16 Intervertebral disc disorders with radiculopathy, lumbar region (principal); Z79.82 Long term (current) use of aspirin; Z86.73 Personal history of transient ischemic attack (TIA), and cerebral infarction without residual deficits; E78.5 Hyperlipidemia, unspecified; I10 Essential (primary) hypertension
CPT/HCPCS: 96372; 96374; 96375; 99284; J1885; J2270; J2360

== ENCOUNTER 2023-07-23 16:02 | Outpatient (CLI) | payer MEDICARE, MEDICAID, SELFPAY ==
--- NOTE | 2023-07-23 16:45 | MR_ITS ---
WS: [id number] MRI LUMBAR SPINE NONCONTRAST HISTORY: M51.36 - Other intervertebral disc degeneration, lumbar r... COMPARISON: 12/13/2022 TECHNIQUE: Sagittal and axial multisequence imaging is submitted. Mild lumbar curve. No acute compression fractures. Increasing marrow edema in the adjacent L5 and S1 vertebral bodies. Postoperative LEFT L3-4 and L4-5 hemilaminectomy defects. Progression of mild disc space narrowing at L5-S1. Conus terminates normally at L1-2 disc level. L1-L2: Mild annular disc bulging. Slight retrolisthesis of L1. Mild disc encroachment into the subart icular recesses has slightly progressed. Similar mild bilateral foraminal stenosis and subarticular r ecess encroachment. Mild facet arthritis, LEFT greater than RIGHT. L2-L3: Previously described LEFT subarticular disc protrusion has resolved. There is now mild broad-b ased disc bulging to the LEFT. No disc contact on the traversing nerve roots. Moderate LEFT and mild RIGHT foraminal stenosis with stable moderate facet arthritis. L3-L4: Diffuse asymmetric disc bulging encroaching into the subarticular recesses, LEFT greater than RIGHT. Mild central stenosis. Moderate bilateral facet arthritis. Mild LEFT foraminal stenosis. L4-L5: Mild asymmetric disc bulging. There is a new tiny central disc protrusion and/or osteophyte. L EFT hemilaminectomy defect. Mild central and bilateral subarticular recess encroachment. Fluid in the facet joints and moderate facet arthritis. Mild bilateral foraminal stenosis. L5-S1: Mild diffuse annular disc bulging and osteophytic ridging. Disc and osteophyte encroachment up on the S1 nerve roots bilaterally. Slightly greater encroachment on the RIGHT nerve root. Disc osteop hyte encroachment into the foramina. Moderate to severe LEFT and moderate RIGHT foraminal stenosis. IMPRESSION: 1. Progression of marrow edema in the L4 and L5 vertebral bodies with a small amount of fluid along t he disc. New finding since 12/13/2022. May be related to instability or postoperative. Less likely thou ght to be infectious. 2. L5-S1: Disc and osteophyte encroachment upon the S1 nerve roots bilaterally. Moderate to severe LE FT and moderate RIGHT foraminal stenosis. Minimal if any progression. 3. L1-2: Disc encroachment into the subarticular recesses. Similar bilateral foraminal and subarticul ar recess stenosis. 4. L2-3: Previously described LEFT subarticular disc protrusion has resolved. Minimal broad-based bul ging to the LEFT now present. Moderate LEFT and mild RIGHT foraminal stenosis. 5. L3-4: Mild central stenosis with moderate bilateral facet arthritis and mild LEFT foraminal stenos is. There is mild disc encroachment into the subarticular recesses, LEFT greater than RIGHT. 6. L4-5: New tiny central disc protrusion and/or osteophyte. Mild central, bilateral subarticular rec ess and foraminal stenosis. Moderate facet arthritis. Not significantly changed. 7. Prior laminectomy defects at L3-4 and L4-5 on the LEFT.
== END 2023-07-23 16:03 | disposition home or self-care (01) ==
PROVIDERS: PCP Family Medicine; Visit Provider Orthopaedic Surgery
DX: M51.36 Other intervertebral disc degeneration, lumbar region (principal); R93.6 Abnormal findings on diagnostic imaging of limbs; M25.78 Osteophyte, vertebrae; M48.07 Spinal stenosis, lumbosacral region; M48.061 Spinal stenosis, lumbar region without neurogenic claudication; M47.816 Spondylosis without myelopathy or radiculopathy, lumbar region
CPT/HCPCS: 72148

== ENCOUNTER → 2023-08-07 11:04 | Outpatient (BNVA) | payer MEDICARE, MEDICAID, SELFPAY | PROVIDERS: PCP Family Medicine; Visit Provider Orthopaedic Surgery | DX: Z47.89 Encounter for other orthopedic aftercare (principal) | CPT/HCPCS: 72100; 99214 ==

== ENCOUNTER → 2023-08-22 10:19 | Outpatient (BNVA) | payer MEDICARE, MEDICAID, SELFPAY | PROVIDERS: PCP Family Medicine; Visit Provider Family Medicine | DX: Z01.818 Encounter for other preprocedural examination (principal) | CPT/HCPCS: 81000 ==

== ENCOUNTER 2023-08-25 17:48 | Inpatient (IN) | payer MEDICARE, MEDICAID, SELFPAY ==
[2023-08-22 08:09] LABS: Add Urine Microscopic? NO; Charge for UA Resulting for Rev
[2023-08-22 08:15] LABS: Basophils % 0.5 %; Eosinophils # 0.3 10^3/uL (0.0-0.8); Eosinophils % 3.4 %; Hematocrit 43.8 % (37-53); Lymphocytes # 1.5 10^3/uL (0.8-4.8); Lymphocytes % 17.8 %; Mean Corpuscular Hemoglobin 29.4 pg (27-33); Mean Platelet Volume 9.7 fL (7.4-10.4); Monocytes # 0.9 10^3/uL (0.2-0.9); Monocytes % 10.3 %; Neutrophils # 5.54 10^3/uL (1.8-7.7); Neutrophils % 67.4 %; Nucleated Red Blood Cells % 0 %; Platelet Count 276 10^3/cmm (157-399); Red Blood Count 4.76 10^6/uL (3.85-5.65); Red Cell Distribution Width 13.7 % (12.1-15.1); White Blood Count 8.22 10^3/uL (3.29-11.43)
[2023-08-22 08:18] LABS: Bilirubin Urine Neg (Negative); Blood Urine Neg (Negative); Glucose Urine UA Norm (Normal); Ketones Urine Negative (Negative); Leukocyte Esterase Urine Negative (Negative); Nitrate Urine Negative (Negative); Protein Urine Neg (Negative); Specific Gravity, Urine 1.015 (1.005-1.030); Urine Appearance Clear (CLEAR); Urine Color Yellow (Yellow); Urobilinogen Urine Neg (Negative); pH Urine 6.5 (5-7)
[2023-08-22 08:29] LABS: Alanine Aminotransferase 14 U/L (0-41); Albumin Level 4.2 g/dL (3.5-5.2); Alkaline Phosphatase 94 U/L (40-130); Anion Gap 14.6 (5-19); Aspartate Amino Transferase 20 U/L (0-40); Blood Urea Nitrogen 17 mg/dL (8-23); Calcium 9.4 mg/dL (8.5-10.5); Carbon Dioxide 27 mmol/L (22-29); Chloride 100 mmol/L (98-107); Globulin 3.7 g/dL (1.3-4.6); Glomerular Filtration Rate 97.6 mL/min (90-130); Glucose 99 mg/dL (65-115); Osmolality Calculated 288 mOsm/kg (285-295); Potassium 3.6 mmol/L (3.5-5.1); Sodium 138 mmol/L (136-145); Total Bilirubin 0.5 mg/dL (0.15-1.2); Total Protein 7.9 g/dL (6.6-8.7)
[2023-08-25] VITALS (16 sets, daily range): BP systolic 102–178; BP diastolic 60–104; PULSE 75–97; RESP 17–23; TEMP 36.1–36.9; O2SAT 91–99; BMI 31.6
--- NOTE | 2023-08-25 | XR_ITS ---
WS: [id number] Lumbar spine, C ARM fluoroscopy views, 08/25/2023 Clinical Data: or pic, L4 to pelvis fusion Comparison: Lumbar spine, 08/07/2023 Findings: Dr. Slater performed a posterior lumbosacral fusion. Impression: Posterior lumbosacral fusion.
[2023-08-25] MEDS: sodium chloride 0.9% 1,000 ML 30 ML IV (12:45)
--- NOTE | 2023-08-25 14:26 | W.PM.OPSUD ---
Surgery/Procedure H&P Update DATE OF PROCEDURE: August 25, 2023 DATE H&P PERFORMED: 08/22/23 H&P UPDATE INFORMATION: I have reviewed H&P completed within last 30 days, I have examined patient prior to procedure and No changes to prior documentation PREOP DIAGNOSIS: DDD Lumbar PLANNED PROCEDURE: Operation Date: 08/25/23 13:20 Proposed Procedures p Posterior Lumbar Interbody Fusion PLIF(Not Applicable) - Jak Slater DO s Lumbopelvic Fixation(Not Applicable) - Jak Slater DO s Sacroiliac Joint Fusion SI Joint Fusion/ Open(Not Applicable) - Jak Slater DO
--- NOTE | 2023-08-25 14:48 | P.ANESASSM_ITS ---
Pre-Anesthetic Assessment Height/Weight: Height 1.73 m Weight 94.347 kg Temp Pulse Resp BP Pulse Ox O2 Del Method 98.5 F 80 18 178/104 99 Room Air 08/25/23 12:20 08/25/23 12:20 08/25/23 12:20 08/25/23 12:20 08/25/23 12:20 08/25/23 12:21 Preop Diagnosis: DDD Lumbar Operation Date: 08/25/23 13:20 Proposed Procedures p Posterior Lumbar Interbody Fusion PLIF(Not Applicable) - Jak Slater DO s Lumbopelvic Fixation(Not Applicable) - Jak Slater DO s Sacroiliac Joint Fusion SI Joint Fusion/ Open(Not Applicable) - Jak Slater DO Familial anesthetic complications: none Was Beta Richard taken within 24 hours: N/A Was Clonidine taken within 24 hours: N/A Last intake: Intake Last Liquid Date 08/24/23 Last Liquid Time 19:00 Last Solid Date 08/24/23 Last Solid Time 19:00 Social No alcohol and No tobacco Exam alert, oriented x 3, clear to auscultation bilaterally and regular rate & rhythm Airway Submandibular: within normal limits Cervical ROM: within normal limits Mallampati: Class II Dentition: false CV/HEM Hypertension GI Gastroesophageal Reflux Disease Musc/skel Fibromyalgia, Lower Back Pain and Osteoarthritis/DJD Neuropsych Transient Ischemic Attack Anesthetic Plan ASA status: 3 Anesthesia: General Other: Discussed a.line and transfusion Medications/Allergies Home Medications Medication Instructions Recorded Confirmed Last Taken Type omega-3 fatty acids 1,000 mg 1,000 mg PO DAILY 11/18/20 08/22/23 08/19/23 History capsule (Fish Oil Concentrate) aspirin 81 mg chewable tablet 81 mg PO DAILY 03/04/22 08/22/23 08/19/23 History ascorbic acid (vitamin C) 1,000 mg 1,000 mg PO DAILY 05/17/22 08/22/23 08/24/23 History tablet (Vitamin C) methocarbamol 750 mg tablet 750 mg PO TID 5 days #15 tabs 08/07/23 08/22/23 08/24/23 Rx diclofenac sodium 75 mg 75 mg PO BID 90 days #180 tabs 08/21/23 08/22/23 08/19/23 Rx tablet,delayed release duloxetine 60 mg capsule,delayed 60 mg PO DAILY 90 days #90 caps 08/21/23 08/22/23 08/24/23 Rx release (Cymbalta) finasteride 5 mg tablet (Proscar) 5 mg PO DAILY 90 days #90 tabs 08/21/23 08/22/23 08/24/23 Rx lisinopril 10 1 tab PO DAILY 90 days #90 tabs 08/21/23 08/22/23 08/24/23 Rx mg-hydrochlorothiazide 12.5 mg tablet omeprazole 40 mg capsule,delayed 40 mg PO DAILY 90 days #90 caps 08/21/23 08/22/23 08/24/23 Rx release tamsulosin 0.4 mg capsule 0.4 mg PO DAILY 90 days #90 caps 08/21/23 08/22/23 08/24/23 Rx Allergies Allergy/AdvReac Type Severity Reaction Status Date / Time No Known Allergies Allergy Verified 08/25/23 12:25 Current Medications Generic Name Dose Route Start Last Admin Trade Name Freq PRN Reason Stop Dose Admin Sodium Chloride 1,000 mls @ 30 mls/hr 08/25/23 12:15 08/25/23 12:45 Sodium Chloride 0.9% IV 08/26/23 12:14 30 mls/hr .Q24H REINALDO Administration PFSH Anesthesia Medical History Hx-TIA (transient ischemic attack) more than 20 years ago Hypertension Hyperlipemia GERD (gastroesophageal reflux disease) BPH (benign prostatic hyperplasia) Arthritis 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 Fibromyalgia Surgical History History of hernia surgery H/O vasectomy Family History Brother Blood clot in vein Other Cancer Chronic kidney disease (CKD) Diabetes Hypertension Social History Smoking and tobacco/nicotine status: never used tobacco/nicotine Alcohol intake: never Substance/Drug Use: never Data Anesthesia 08/22/23 08:03 08/22/23 08:03 Cardiac Studies: 2 No Data to Display
[2023-08-25] MEDS: ceFAZolin 2,000 MG in sodium chloride 0.9% (plus) 50 ML 100 MG IV ×2 (14:58→22:51)
[2023-08-25] MEDS: vancomycin 1,000 MG SDV 1000 MG XX (16:28)
[2023-08-25] MEDS: heparin, porcine 1,000 unit/mL INJ 10 mL 10000 UNIT IRRIGATION (16:29)
[2023-08-25] MEDS: thrombin 5,000 unit SDV 5000 UNIT XX (16:30)
[2023-08-25] MEDS: lidocaine-epi 2% 20 mL INJ INJECTION (17:32)
--- NOTE | 2023-08-25 17:54 | P.OP_ITS ---
Operative Report Date of procedure: August 25, 2023 Pre-op diagnosis: Lumbar stenosis with neurogenic claudication Post-op diagnosis: same Procedure done: 1.? Posterior fusion L4 -pelvis 3.? Instrumentation L4-S1 4.? Lumbopelvic instrumentation 5. open right Sacral iliac fusion 6. open left sacral iliac fusion 7. L4/5 laminectomy with partial facetectomies 8. L5/S1 laminectomy with facetectomies 9. use of computer navigation / stereotactic spine 10. use of autograft from same incision 11. allograft 12. Bone marrow aspirate from right iliac crest Surgeon: Jak Slater DO Dishroom Attendant: Jone Taveras Dishroom Attendant: The surgical services director, Jone Taveras, PAC was needed for his expertise under the microscope. He was important and necessary throughout the procedure to complete in a safe and timely manner. He assisted with patient positioning prepping and draping tissue retraction suctioning of the operative field protection of the dural sac and tissue closure Estimated blood loss (mL): 600 Procedure: 1.? Posterior fusion L4 -pelvis 3.? Instrumentation L4-S1 4.? Lumbopelvic instrumentation 5. open right Sacral iliac fusion 6. open left sacral iliac fusion 7. L4/5 laminectomy with partial facetectomies 8. L5/S1 laminectomy with facetectomies 9. use of computer navigation / stereotactic spine 10. use of autograft from same incision 11. allograft 12. Bone marrow aspirate from right iliac crest Patient is brought to the operative suite.? After undergoing anesthesia, the patient had neuro monitoring attached.? Patient was then placed in the prone position on the Tahir table.? All areas of impingement were well-padded.? Patient was then prepped and draped in the normal sterile fashion.? Skin incision was then made over the T10 to the sacrum.? Subperiosteal dissection was made out to the transverse processes of L4 bilaterally L5 bilaterally and sacral ala bilaterally.? The [employer] bone marrow aspirate kit was used to aspirate bone marrow aspirate.? This was done by using the sharp probe to open up the bone.? Aspiration was performed and then the blunt probe was then used to dissect down to through the bone tunnel.? An aspirating well drawn back a millimeter approximately 10 cc of bone marrow aspirate was used.? Admixed with the allograft and autograft bone that will be used. Next tension was brought to placing the fiducial for the computer navigation.? 2 pins were placed into the right iliac crest.? The fiducial was attached.? The C- arm was brought in and information from the C arm was then linked to the computer used for placing the screws.? Next attention was brought to placing the pedicle screws.? This was done by using the gearshift probe.? The probe was used to identify the pedicle.? Then the pedicle feeler was used followed by placement of screw.? This was done at L4 bilaterally, L5 bilaterally and S1 bilaterally. Next attension was brought to placing the iliac screws.? This was done using the sacral ala iliac technique.? The gearshift probe linked to computer navigation was then placed through the sacral ala into the sacroiliac joint into the iliac crest.? Next the pedicle feeler was used followed by the computer navigated tap.? And then the screw was passed a 90 mm screw was placed on the right side and a 60 mm screw was placed on the left side.? Both the screws were 9.5 mm in diameter. Next attension was brought to performing the open and sacral iliac fusion.? This was done by again using the gearshift probe linked to computer navigation.? Followed by pedicle feeler followed by placing a wire and then the drill drilled over the wire and then bone graft was packed into the sacroiliac joint and into the drill hole.? And the sacroiliac screw was then placed.? This technique was done on both the right and left side. Next attention was brought to performing the laminectomy of L4.? This was done using the high-speed bur Kerrisons and curettes.? Once the lamina was removed and then attention was brought to performing a partial facetectomy on the contralateral side.? This was done again using the high-speed bur curettes and Kerrisons.? The ligamentum flavum was taken down bilaterally from L4 to L5.? Attention was then brought to the facet on the ipsilateral side.? The facet was taken down.? The L5 nerve was decompressed as it passed around the L5 pedicle.? The laminectomy was done for purposes of decompressing the nerve.? The L4 nerve was identified as it traversed through the L4/5 foramen.? The L5 nerve was traced around the L5 pedicles bilateral.? The scar tissue was pulled off the dura.? There was found to be in good repair. Next attention was brought to performing the laminectomy of L5.? This was done using the high-speed bur Kerrisons and curettes.? Once the lamina was removed and then attention was brought to performing a partial facetectomy on the contralateral side.? This was done again using the high-speed bur curettes and Kerrisons.? The ligamentum flavum was taken down bilaterally from L5 to S1.? Attention was then brought to the facet on the ipsilateral side.? The facet was taken down.? The S1 nerve was decompressed as it passed around the S1 pedicle.? The laminectomy was done for purposes of decompressing the nerve.? The L5 nerve was identified as it traversed through the L5/S1 foramen.? The S1 nerve was traced around the S1 pedicles bilateral.? The scar tissue was pulled off the dura.? There was found to be in good repair. Attention was then brought to attaching the rods to the screws placed in the L4 bilaterally L5 bilaterally and S1 bilaterally.? This was then attached to the sacroiliac screw providing the lumbopelvic fixation.? Caps were torqued into position. Locking the construct in place. Wound was copiously irrigated and then attention was brought to decorticating the facets and transverse processes laterally.? Bone that was taken down from the lamina was used along with osteoamp fibers and sponges were packed into the lateral gutters along the facet joints.? This was done bilaterally. Wound was then closed in a layered fashion starting with the thoracolumbar fascia.? 0-vicryl was used the sub cutaneous tissue was closed with 2-0 vicryl and skin with 4-0 monocryl.? Glue was then used to seal the skin and a steril dressing was applied.? Patient was then placed in the supine position. The endotracheal tube was removed and patient was transferred to the PACU in stable condition.
[2023-08-25] MEDS: lactated ringers 1,000 ML 90 ML IV (19:07)
[2023-08-25] MEDS: methocarbamol 750 mg Tablet PO (20:59)
[2023-08-25] MEDS: docusate sodium 100 mg Capsule PO (20:59)
[2023-08-25] MEDS: HYDROcodone-acetaminophen 10-325 mg Tablet PO (20:59)
[2023-08-25] MEDS: duloxetine 60 mg Capsule PO (21:20)
[2023-08-25] MEDS: pantoprazole DR 40 mg Tablet PO (21:20)
[2023-08-26] VITALS: BP 132/82; PULSE 97; RESP 18; TEMP 36.8; O2SAT 94
[2023-08-26] MEDS: HYDROcodone-acetaminophen 10-325 mg Tablet PO ×5 (01:10→19:48)
[2023-08-26] MEDS: ketorolac 30 mg/mL INJ IVP ×2 (01:26→22:27)
[2023-08-26 02:00] VITALS: BP 116/70; PULSE 86; RESP 17; TEMP 36.4; O2SAT 93
[2023-08-26] MEDS: lactated ringers 1,000 ML 90 ML IV ×2 (06:05→17:43)
[2023-08-26] MEDS: ceFAZolin 2,000 MG in sodium chloride 0.9% (plus) 50 ML 100 MG IV ×2 (06:05→14:54)
[2023-08-26 06:32] LABS: Hematocrit 30.8 % (37-53)
--- NOTE | 2023-08-26 07:29 | P.PN_ITS ---
Subjective 2 Subjective: POD 1 Patient resting comfortably. Reports mild back pain has noticed improvement of his leg pain. Denies shortness of breath, chest pain, headaches. Vitals/I&O/Wt Last Vital Signs Temp 97.6 F 08/26/23 02:00 Pulse 86 08/26/23 02:00 Resp 17 08/26/23 02:00 BP 116/70 08/26/23 02:00 Pulse Ox 93 08/26/23 02:00 O2 Del Method Nasal Cannula 08/25/23 19:00 O2 Flow Rate 3 08/25/23 19:00 08/25/23 08/26/23 08/26/23 22:59 06:59 14:59 Intake Total 557.5 / 557.5 1087 / 1644.5 Output Total 1170 / 1170 825 / 1995 Balance -612.5 / -612.5 262 / -350.5 Weight last 48 hrs Weight 220 lb 14.4 oz Weight 215 lb Weight 208 lb Physical Exam 2 Narrative: Patient presents alert and oriented x3 with a good general appearance normal mood and affect. Normal coordination normal stability. Mild tenderness around the incisional site with the incision appear to be clean and dry with Hemovac drain intact. No signs of erythema or drainage. No signs of infection. Patient denies any fevers or chills. 5/5 motor strength both lower extremities with negative straight leg raise bilaterally. Calves are supple no medial thigh tenderness. Pulses are 2+ at the dorsalis pedis and posterior tibial region. Good capillary refill throughout normal sensation light touch both lower extremities. Urinary Catheter Management: Cruz: Cath Placed During This Visit: yes, but has since been removed by the nurse Reason for Continuing Indwelling Catheter: Decision to DC Catheter Urinary Catheter Date of Insertion: 08/25/23 Urinary Catheter Time of Insertion: 15:08 Date Urinary Catheter Removed: 08/25/23 Time Urinary Catheter Discontinued: 21:07 Data 08/26/23 06:23 08/22/23 08:03 A&P Assessment and plan (1) Status post lumbar spinal fusion: Physical therapy evaluate for mobilization. Continue Hemovac drain today as he had 550 mL per last 12 hours. Encourage incentive spirometry for pulmonary toilet. No bending lifting or twisting. Walking the halls. Continue SCDs for DVT prophylaxis. Attestations 2 Medical Necessity Statement*: Hold discharge till in the morning until more medically optimized. Coding Level of Care Code Acute Code for Chg Fwd Diagnoses Status post lumbar spinal fusion Z98.1
--- NOTE | 2023-08-26 07:53 | ANE.PACU2 ---
Inpatient post-anesthesia follow up: Airway intact: Yes Vital signs: Temperature 97.6 F Pulse Rate 86 Respiratory Rate 17 Blood Pressure 116/70 Pulse Oximetry 93 Oxygen Delivery Me thod Nasal Cannula Oxygen Flow Rate 3 Fraction of Inspir ed Oxygen Hydration adequate: Yes Nausea and vomiting: No Pain level: 2 Mental status: Baseline
[2023-08-26 08:00] VITALS: BP 114/76; PULSE 81; RESP 16; TEMP 36.8; O2SAT 95
[2023-08-26] MEDS: methocarbamol 750 mg Tablet PO ×3 (09:46→19:48)
[2023-08-26] MEDS: pantoprazole DR 40 mg Tablet PO (09:47)
[2023-08-26] MEDS: docusate sodium 100 mg Capsule PO ×2 (09:47→19:48)
[2023-08-26] MEDS: tamsulosin 0.4 mg Capsule PO (09:47)
[2023-08-26] MEDS: finasteride 5 mg Tablet PO (09:47)
[2023-08-26] MEDS: hydroCHLOROthiazide 25 mg Tablet 12.5 MG PO (09:47)
[2023-08-26] MEDS: duloxetine 60 mg Capsule PO (09:47)
[2023-08-26] MEDS: lisinopril 10 mg Tablet PO (09:47)
[2023-08-26] MEDS: ascorbic acid 500 mg Tablet 1000 MG PO (09:47)
[2023-08-26] MEDS: omega-3 fatty acids 1,000 mg Capsule 1000 MG PO (09:47)
[2023-08-26 12:00] VITALS: BP 90/54; PULSE 74; RESP 16; TEMP 36.7; O2SAT 96
[2023-08-26 16:00] VITALS: BP 108/48; PULSE 83; RESP 16; TEMP 36.7; O2SAT 96
[2023-08-26 17:30] LABS: Hematocrit 29.1 % (37-53)
[2023-08-26 20:00] VITALS: BP 103/50; PULSE 77; RESP 18; TEMP 37.1; O2SAT 94
[2023-08-27] VITALS: BP 95/57; PULSE 82; RESP 18; TEMP 36.8; O2SAT 91
[2023-08-27] MEDS: HYDROcodone-acetaminophen 10-325 mg Tablet PO ×3 (00:02→08:26)
[2023-08-27 04:00] VITALS: BP 99/57; PULSE 79; RESP 17; TEMP 36.6; O2SAT 90
[2023-08-27] MEDS: lactated ringers 1,000 ML 90 ML IV (04:04)
[2023-08-27] MEDS: sodium chloride 0.9% 500 ML 999 ML IV (06:44)
--- NOTE | 2023-08-27 06:54 | P.PN_ITS ---
Subjective 2 Subjective: POD 2 Patient is up mobilizing. He has mild back pain improvement of his legs. Denies shortness of breath, chest pain, headaches. Vitals/I&O/Wt Last Vital Signs Temp 98 F 08/27/23 04:00 Pulse 79 08/27/23 04:00 Resp 17 08/27/23 04:00 BP 99/57 08/27/23 04:00 Pulse Ox 90 08/27/23 04:00 O2 Del Method Room Air 08/26/23 16:00 O2 Flow Rate 3 08/25/23 19:00 08/26/23 08/26/23 08/27/23 14:59 22:59 06:59 Intake Total 725 / 725 1530 / 2255 931.5 / 3186.5 Output Total 300 / 300 800 / 1100 740 / 1840 Balance 425 / 425 730 / 1155 191.5 / 1346.5 Weight last 48 hrs Weight 224 lb 3.2 oz Weight 220 lb 14.4 oz Weight 215 lb Weight 208 lb Physical Exam 2 Narrative: Patient presents alert and oriented x3 with a good general appearance normal mood and affect. Normal coordination normal stability. Mild tenderness around the incisional site with the incision appear to be healing nicely. No signs of erythema or drainage. No signs of infection. Patient denies any fevers or chills. 5/5 motor strength both lower extremities with negative straight leg raise bilaterally. Calves are supple no medial thigh tenderness. Pulses are 2+ at the dorsalis pedis and posterior tibial region. Good capillary refill throughout normal sensation light touch both lower extremities. Urinary Catheter Management: Cruz: Cath Placed During This Visit: yes, but has since been removed by the nurse Reason for Continuing Indwelling Catheter: Decision to DC Catheter Urinary Catheter Date of Insertion: 08/25/23 Urinary Catheter Time of Insertion: 15:08 Date Urinary Catheter Removed: 08/25/23 Time Urinary Catheter Discontinued: 21:07 Data 08/26/23 17:04 08/22/23 08:03 A&P Assessment and plan (1) Status post lumbar spinal fusion: Will discontinue the Hemovac drain. Continue incentive spirometry for pulmonary toilet. Continue walking program with no bending lifting or twisting. Will see him back in the office in 1 week's time for a wound check. Attestations 2 Medical Necessity Statement*: Discharge home this morning after the Hemovac drain discontinued Coding Level of Care Code Acute Code for Chg Fwd Diagnoses Status post lumbar spinal fusion Z98.1
[2023-08-27 07:26] VITALS: BP 117/70; PULSE 75; RESP 18; TEMP 36.9; O2SAT 97
[2023-08-27] MEDS: methocarbamol 750 mg Tablet PO (08:26)
[2023-08-27] MEDS: hydroCHLOROthiazide 25 mg Tablet 12.5 MG PO (08:26)
[2023-08-27] MEDS: finasteride 5 mg Tablet PO (08:26)
[2023-08-27] MEDS: omega-3 fatty acids 1,000 mg Capsule 1000 MG PO (08:26)
[2023-08-27] MEDS: pantoprazole DR 40 mg Tablet PO (08:26)
[2023-08-27] MEDS: ascorbic acid 500 mg Tablet 1000 MG PO (08:27)
[2023-08-27] MEDS: lisinopril 10 mg Tablet PO (08:27)
[2023-08-27] MEDS: duloxetine 60 mg Capsule PO (08:27)
[2023-08-27] MEDS: docusate sodium 100 mg Capsule PO (08:27)
[2023-08-27] MEDS: tamsulosin 0.4 mg Capsule PO (08:27)
[2023-08-27 12:08] VITALS: BP 117/70; PULSE 75; RESP 18; TEMP 36.9; O2SAT 97
--- NOTE | 2023-08-28 11:04 | PM.DCS ---
Discharge Providers Date of Admission: 08/25/23 17:48 Date of Discharge: August 27, 2023 Attending Provider at Admission: Jak Slater DO Attending Provider at Discharge: Jak Slater DO Primary Care Provider: Shruthi Sim MD Diagnoses at Discharge Discharge Diagnosis (1) Status post lumbar spinal fusion: Status: Acute Reason for Visit Reason for Visit: Z98.890 Physical Exam Urinary Catheter Management: Cruz: Cath Placed During This Visit: yes, but has since been removed by the nurse Reason for Continuing Indwelling Catheter: Decision to DC Catheter Urinary Catheter Date of Insertion: 08/25/23 Urinary Catheter Time of Insertion: 15:08 Date Urinary Catheter Removed: 08/25/23 Time Urinary Catheter Discontinued: 21:07 Discharge Data Studies Completed and Pending Completed Studies During Hospitalization Category Date Time Status XR lumbar spine 2-3V* [id number] Routine Exams 08/25/23 Completed Laboratory Results WBC 8.22 10^3/uL (3.29-11.43) 08/22/23 08:03 RBC 4.76 10^6/uL (3.85-5.65) 08/22/23 08:03 Hgb 9.30 g/dL (11.27-16.99) L 08/26/23 17:04 Hct 29.1 % (37-53) L 08/26/23 17:04 MCV 92.0 fl (82-101) 08/22/23 08:03 MCH 29.4 pg (27-33) 08/22/23 08:03 MCHC 32.0 g/dL (30-55) 08/22/23 08:03 RDW 13.7 % (12.1-15.1) 08/22/23 08:03 Plt Count 276 10^3/cmm (157-399) 08/22/23 08:03 MPV 9.7 fL (7.4-10.4) 08/22/23 08:03 Neut % (Auto) 67.4 % 08/22/23 08:03 Lymph % (Auto) 17.8 % 08/22/23 08:03 Hawkins % (Auto) 10.3 % 08/22/23 08:03 Eos % (Auto) 3.4 % 08/22/23 08:03 Baso % (Auto) 0.5 % 08/22/23 08:03 Neut # (Auto) 5.54 10^3/uL (1.8-7.7) 08/22/23 08:03 Lymph # (Auto) 1.5 10^3/uL (0.8-4.8) 08/22/23 08:03 Hawkins # (Auto) 0.9 10^3/uL (0.2-0.9) 08/22/23 08:03 Eos # (Auto) 0.3 10^3/uL (0.0-0.8) 08/22/23 08:03 Baso # (Auto) 0.0 10^3/uL (0.0-0.1) 08/22/23 08:03 Nucleated RBC % (auto) 0 % 08/22/23 08:03 Nucleated RBCs # 0.0 /100WBC 08/22/23 08:03 Sodium 138 mmol/L (136-145) 08/22/23 08:03 Potassium 3.6 mmol/L (3.5-5.1) 08/22/23 08:03 Chloride 100 mmol/L (98-107) 08/22/23 08:03 Carbon Dioxide 27 mmol/L (22-29) 08/22/23 08:03 Anion Gap 14.6 (5-19) 08/22/23 08:03 BUN 17 mg/dL (8-23) 08/22/23 08:03 Creatinine 0.8 mg/dL (0.7-1.2) 08/22/23 08:03 GFR Calculation 97.6 mL/min (90-130) 08/22/23 08:03 Glucose 99 mg/dL (65-115) 08/22/23 08:03 Calculated Osmolality 288 mOsm/kg (285-295) 08/22/23 08:03 Calcium 9.4 mg/dL (8.5-10.5) 08/22/23 08:03 Total Bilirubin 0.5 mg/dL (0.15-1.2) 08/22/23 08:03 AST 20 U/L (0-40) 08/22/23 08:03 ALT 14 U/L (0-41) 08/22/23 08:03 Alkaline Phosphatase 94 U/L (40-130) 08/22/23 08:03 Total Protein 7.9 g/dL (6.6-8.7) 08/22/23 08:03 Albumin 4.2 g/dL (3.5-5.2) 08/22/23 08:03 Globulin 3.7 g/dL (1.3-4.6) 08/22/23 08:03 Urine Color Yellow (Yellow) 08/22/23 08:00 Urine Appearance Clear (CLEAR) 08/22/23 08:00 Urine pH 6.5 (5-7) 08/22/23 08:00 Ur Specific [place] 1.015 (1.005-1.030) 08/22/23 08:00 Urine Protein Neg (Negative) 08/22/23 08:00 Urine Glucose (UA) Norm (Normal) 08/22/23 08:00 Urine Ketones Negative (Negative) 08/22/23 08:00 Urine Blood Neg (Negative) 08/22/23 08:00 Urine Nitrate Negative (Negative) 08/22/23 08:00 Urine Bilirubin Neg (Negative) 08/22/23 08:00 Urine Urobilinogen Neg mg/dL (Negative) 08/22/23 08:00 Ur Leukocyte Esterase Negative (Negative) 08/22/23 08:00 Vitals Last Vital Signs Temp 98.4 F 08/27/23 12:08 Pulse 75 08/27/23 12:08 Resp 18 08/27/23 12:08 BP 117/70 08/27/23 12:08 Pulse Ox 97 08/27/23 12:08 O2 Del Method Room Air 08/27/23 07:26 O2 Flow Rate 3 08/25/23 19:00 Discharge Plan Discharge Patient Disposition: Home Health Service Condition: Stable Prescriptions: New hydrocodone-acetaminophen 10-325 mg Tablet 1 - 2 tab PO Q4H PRN (Reason: Post Operative Pain) Qty: 30 0RF Continued aspirin 81 mg tablet,chewable 81 mg PO DAILY diclofenac sodium 75 mg tablet,delayed release (DR/EC) 75 mg PO BID 90 Days Qty: 180 1RF Rx Instructions: TAKE ONE TABLET BY MOUTH TWICE A DAY TAKE WITH FOOD duloxetine [Cymbalta] 60 mg capsule,delayed release(DR/EC) 60 mg PO DAILY 90 Days Qty: 90 1RF Proscar 5 mg tablet 5 mg PO DAILY 90 Days Qty: 90 1RF lisinopril-hydrochlorothiazide 10-12.5 mg tablet 1 tab PO DAILY 90 Days Qty: 90 1RF omeprazole 40 mg capsule,delayed release(DR/EC) 40 mg PO DAILY 90 Days Qty: 90 1RF tamsulosin 0.4 mg capsule 0.4 mg PO DAILY 90 Days Qty: 90 1RF methocarbamol 750 mg tablet 750 mg PO TID 5 Days Qty: 15 1RF omega-3 fatty acids [Fish Oil Concentrate] 1,000 mg capsule 1,000 mg PO DAILY ascorbic acid (vitamin C) [Vitamin C] 1,000 mg Tablet 1,000 mg PO DAILY Discharge Orders: Discharge Order (Routine); Ordered 08/27/23 Ordered By: Jone Taveras Referrals: [facility] [Other] Jak Slater DO [Physician] - 09/09/23 1:15 pm Discharge Diet: Advance as tolerated Discharge Activity: Limit activity as instructed Patient Instructions: Hydrocodone/Acetaminophen (By mouth), Lumbar Spinal Fusion (GEN), Opioid Safety Activity Restrictions/Additional Instructions: Thank you for choosing [facility] for your care! The following is a list of instructions, from your provider, to follow upon your discharge to ensure you have the optimal recovery from your recent injury or surgery. Follow-up care is a titus part of your treatment and safety. Be sure to make and go to all appointments and call your doctor if you are having problems. If you do not already have a follow-up appointment made, call Dr. Slater's] office in the next 1-3 days to make follow up appointment for [1-2] weeks at [phone]. It is also a good idea to know your test results and keep a list of the medicines you take. Medications will be prescribed for you at your provider's discretion. These medications are to be used as instructed; if they are taken more often that prescribed they will not be refilled early and in most cases will not be refilled at all. > When a refill is needed, you should contact eugene ventura 2-3 business days before your prescription runs out. Medications will NOT be refilled by termite [employer] service representative providers after hours! > Many pain medications contain Tylenol (Acetaminophen). Do not consume more than 4,000 mg of Tylenol per day in total with any combination of medications. > Pain medications can cause constipation. Please use an over the counter stool softener as directed, while taking pain medications. Consult your local pharmacist with questions or recommendations on stool softeners. If constipation persists, contact our office or your primary care provider. > While under our care, you are not to receive pain medications or other controlled substances from any other provider unless our office is notified and approves. Any attempts to do so will result in refusal to prescribe any further pain medications and possible dismissal from our practice. ? Walking is essential for the healing process after surgery. We would like you to slowly advance your walking. This should be done on relatively flat clear ground (inside or out) or can be done on a treadmill. Remember this goal does not have to happen all at once, slowly increase your distance and duration. This can be broken into more more than one walk per day as tolerated. Patients who walk as directed after surgery rarely require Physical Therapy. In the unlikely event this issue arises your provider will direct hospital staff to make the appropriate arrangements. ? No lifting over 5 pounds {a gallon of milk) or bending/twisting until further notice. Each of these activities places an unnecessary amount of stress onto the body and can impede the delicate healing process. > Instead of bending at the waist, keep your back straight and bend at the knees. > Instead of twisting your torso, keep your back straight and turn your entire body with your feet. ? You may sleep in any position which makes you comfortable. Many patients find comfort sleeping in a reclining chair. It is not abnormal to have difficulty sleeping for the first several weeks following your surgery. We recommend trying Benadry! or Tylenol PM as directed to help with your sleeping difficulties. Both medications are over the counter and available without prescription. ? NO SMOKING!!! Smoking dramatically increases the probability of developing postoperative wound infections. ? Common complaints after lumbar and/or thoracic spine surgery include, but are not limited to: numbness and/or tingling in the legs, pain around the incision and surrounding tissues, muscle spasms, or stiffness of the middle to low back. Contact our office if these symptoms persist or if an acute change occurs. ? No driving for the first 3-5days, and not while taking narcotics until seen at your follow-up appointment and cleared. There are no restrictions for riding on short trips, however if you take a longer trip, arrangements should be made to make regular stops to get out of the vehicle and stretch . ? Swelling is an unfortunate event that will take place with any surgery and is the primary source of your postoperative discomfort. While walking and regular approved activities helps control inflammation, there are additional steps you can take to minimize swelling. > Place ice over the surgical site and surrounding tissue for twenty minutes, followed by applying a low/medium heat (heating pad) for an additional twenty minutes every 1-2 hours as needed for painrelief. > You may use of over the counter anti-inflammatory medications (Ibuprofen, Motrin, Aleve, Advil, etc) as directed on the package label. These types of medicines will significantly reduce the amount of discomfort you experience after surgery from swelling. It should be noted that if you have and allergy to any of these medications, or a history of ulcers or kidney disease you should consult you primary care provider prior to starting these medications. Discharge Attestations Time Spent in Discharge Care*: less than 30 min Quality Metrics Clinical Quality Measures [ No reported AMI, CVA or VTE this stay] Coding Level of Care Code Acute Code for Chg Fwd Diagnoses Status post lumbar spinal fusion Z98.1
== END 2023-08-27 12:09 | disposition home health service (06) | DRG 455 ==
LOC: MEDSURG 18:33
PROVIDERS: Admitting Provider Orthopaedic Surgery; PCP Family Medicine; Visit Provider Orthopaedic Surgery
PROC: 0SG007J Fusion of Lumbar Vertebral Joint with Autologous Tissue Substitute, Posterior Approach, Anterior Column, Open Approach (ICD-10-PCS; CPT 22612; principal; 2023-08-25 12:50)
PROC: 0SG007J Fusion of Lumbar Vertebral Joint with Autologous Tissue Substitute, Posterior Approach, Anterior Column, Open Approach (ICD-10-PCS; 2023-08-25 12:50)
PROC: 0SG007J Fusion of Lumbar Vertebral Joint with Autologous Tissue Substitute, Posterior Approach, Anterior Column, Open Approach (ICD-10-PCS; CPT 27280; 2023-08-25 12:50)
DX: M48.062 Spinal stenosis, lumbar region with neurogenic claudication (principal); Z86.73 Personal history of transient ischemic attack (TIA), and cerebral infarction without residual deficits; I10 Essential (primary) hypertension; E78.1 Pure hyperglyceridemia; K21.9 Gastro-esophageal reflux disease without esophagitis; N40.1 Benign prostatic hyperplasia with lower urinary tract symptoms; R39.12 Poor urinary stream; M79.7 Fibromyalgia; M19.90 Unspecified osteoarthritis, unspecified site; Z79.82 Long term (current) use of aspirin
CPT/HCPCS: 36415; 51702; 72100; 76000; 80053; 81000; 81003; 85014; 85018; 85025; 97116; 97161; 97165; 97530; A9281; C1713; C1762; C9359; J0131; J0330; J0690; J1100; J1170; J1644; J1885; J2405; J2704; J3010; J3370; J3490; J7030; J7040; J7120; P9045

== ENCOUNTER → 2023-09-09 13:23 | Outpatient (BNVA) | payer MEDICARE, MEDICAID, SELFPAY | PROVIDERS: PCP Family Medicine; Visit Provider Physician Assistant | DX: Z98.1 Arthrodesis status (principal); Z47.89 Encounter for other orthopedic aftercare | CPT/HCPCS: 72100; 99024 ==

== ENCOUNTER → 2023-10-07 09:08 | Outpatient (BNVA) | payer MEDICARE, MEDICAID, SELFPAY | PROVIDERS: PCP Family Medicine; Visit Provider Orthopaedic Surgery | DX: Z98.1 Arthrodesis status (principal); Z47.89 Encounter for other orthopedic aftercare | CPT/HCPCS: 72100; 99024 ==

== ENCOUNTER → 2023-10-08 10:19 | Outpatient (BNVA) | payer MEDICARE, MEDICAID, SELFPAY | PROVIDERS: PCP Family Medicine; Visit Provider Nurse Practitioner Family | DX: R68.89 Other general symptoms and signs (principal); J10.1 Influenza due to other identified influenza virus with other respiratory manifestations | CPT/HCPCS: 87400 ==

== ENCOUNTER → 2023-11-18 08:56 | Outpatient (BNVA) | payer MEDICARE, MEDICAID, SELFPAY | PROVIDERS: PCP Family Medicine; Visit Provider Orthopaedic Surgery | DX: Z98.1 Arthrodesis status (principal) | CPT/HCPCS: 72100; 99024 ==

== ENCOUNTER → 2024-01-08 08:37 | Outpatient (BNVA) | payer MEDICARE, MEDICAID, SELFPAY | PROVIDERS: PCP Family Medicine; Visit Provider Family Medicine | DX: K21.9 Gastro-esophageal reflux disease without esophagitis (principal); I10 Essential (primary) hypertension; N40.1 Benign prostatic hyperplasia with lower urinary tract symptoms; R39.12 Poor urinary stream; M19.90 Unspecified osteoarthritis, unspecified site; R73.03 Prediabetes; E11.9 Type 2 diabetes mellitus without complications; E78.1 Pure hyperglyceridemia | CPT/HCPCS: 80053; 80061; 83036 ==

== ENCOUNTER → 2024-02-12 08:52 | Outpatient (BNVA) | payer MEDICARE, MEDICAID, SELFPAY | PROVIDERS: PCP Family Medicine; Visit Provider Orthopaedic Surgery | DX: Z98.1 Arthrodesis status (principal) | CPT/HCPCS: 72100; 99213 ==

== ENCOUNTER → 2024-08-10 09:24 | Outpatient (BNVA) | payer MEDICARE, MEDICAID, SELFPAY | PROVIDERS: PCP Family Medicine; Visit Provider Family Medicine | DX: N40.1 Benign prostatic hyperplasia with lower urinary tract symptoms (principal); R73.03 Prediabetes; R39.12 Poor urinary stream; I10 Essential (primary) hypertension | CPT/HCPCS: 80048; 83036; 84153 ==

== ENCOUNTER → 2024-09-16 15:05 | Outpatient (BNVA) | payer MEDICARE, MEDICAID, SELFPAY | PROVIDERS: PCP Family Medicine; Visit Provider Orthopaedic Surgery | DX: Z98.1 Arthrodesis status (principal) | CPT/HCPCS: 72110; 99213 ==

== ENCOUNTER → 2024-12-06 14:27 | Outpatient (BNVA) | payer MEDICARE, MEDICAID, SELFPAY | PROVIDERS: PCP Family Medicine; Visit Provider Family Medicine | DX: R97.20 Elevated prostate specific antigen [PSA] (principal); Z12.5 Encounter for screening for malignant neoplasm of prostate | CPT/HCPCS: 84153; 84154 ==

== ENCOUNTER 2025-02-05 14:14 | Emergency (ER) | payer MEDICARE, MEDICAID, SELFPAY ==
[2025-02-05 14:21] VITALS: BP 152/86; PULSE 83; RESP 18; TEMP 36.8; O2SAT 98
--- NOTE | 2025-02-05 16:10 | USR_ITS ---
PROCEDURE INFORMATION: Exam: US Duplex Right Lower Extremity Veins, Limited Exam date and time: 02/05/2025 4:28 PM Age: 65 years old Clinical indication: Pain; Leg, lower; Right; Additional info: Pain and swelling TECHNIQUE: Imaging protocol: Real-time duplex ultrasound of the right extremity with 2-D mcfarland scale, color Doppler flow and spectral waveform analysis including responses to compression and other maneuvers (when performed) with image documentation. Limited exam was focused on the right lower extremity veins. COMPARISON: CT abdomen pelvis w con* [id number] 07/12/2018 2:36 PM FINDINGS: Right deep veins: Unremarkable. The common femoral, femoral, proximal profunda femoral and popliteal veins are patent without thrombus. Normal Doppler waveforms. Normal compressibility and/or augmentation response. Superficial veins: Greater saphenous vein at the saphenofemoral junction is patent without thrombus. Soft tissues: Unremarkable. US/[place] [id number] IMPRESSION: No evidence of deep vein thrombosis.
--- NOTE | 2025-02-05 17:11 | ED_ITS ---
HPI - Wound/Laceration General: Chief Complaint: Wound/Laceration Stated Complaint: sore & redness on rt leg Time Seen by Provider: 02/05/25 15:56 History of Present Illness: 65-year-old male patient presents to the emergency department with tenderness and redness to his right lower leg. Patient states he thinks he may have cellulitis to this leg as he has had frequent cases of cellulitis in the past. Patient denies any calf tenderness or calf swelling. Patient denies any history of blood clots. Patient denies any history or any current chest pain or shortness of breath patient is afebrile Related Data Home Medications ?Medication ?Instructions ?Recorded ?Confirmed omega-3 fatty acids 1,000 mg 1,000 mg PO DAILY 1 09/16/24 capsule (Fish Oil Concentrate) aspirin 81 mg chewable tablet 81 mg PO DAILY 03/04/22 09/16/24 ascorbic acid (vitamin C) 1,000 mg 1,000 mg PO DAILY 0 05/17/22 09/16/24 tablet (Vitamin C) Previous Rx's ?Medication ?Instructions ?Recorded duloxetine 60 mg capsule,delayed 60 mg PO DAILY 90 day s #90 caps 08/10/24 release (Cymbalta) finasteride 5 mg tablet (Proscar) 5 mg PO DAILY 90 day s #90 tabs 08/10/24 lisinopril 20 1 tab PO DAILY 90 days #90 t abs 08/10/24 mg-hydrochlorothiazide 12.5 mg tablet meloxicam 7.5 mg tablet 7.5 mg PO BIDWMEAL 90 days # 180 08/10/24 tabs omeprazole 40 mg capsule,delayed 40 mg PO DAILY 90 day s #90 caps 08/10/24 release prednisone 20 mg tablet 20 mg PO DAILY 7 days #15 ta bs 09/16/24 clindamycin HCl 300 mg capsule 300 mg PO BID 7 days #1 4 caps 02/05/25 (Cleocin HCl) Allergies Allergy/AdvReac Type Severity Reaction Status Date / Time No Known Allergies Allergy Verified 09/16/24 15:20 Review of Systems General: Reports: 10 or more systems reviewed and unremarkable except in HPI and below PFSH ED PFSH: Medical History Hx-TIA (transient ischemic attack) more than 20 years ago Hypertension Hyperlipemia GERD (gastroesophageal reflux disease) BPH (benign prostatic hyperplasia) Arthritis 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 Fibromyalgia Surgical History History of hernia surgery H/O vasectomy Family History Brother Blood clot in vein Other Cancer Chronic kidney disease (CKD) Diabetes Hypertension Social History Smoking and tobacco/nicotine status: never used tobacco/nicotine Alcohol intake: never Substance/Drug Use: never Physical Exam Const: COMMON NORMALS: no acute distress, patient oriented x3 and alert GENERAL APPEARANCE: cooperative Resp: COMMON NORMALS: normal respiratory effort and clear to auscultation bilaterally AUSCULTATION: clear to auscultation bilaterally Cardio: COMMON NORMALS: regular rate, regular rhythm and No murmurs present (Cardio) RATE: regular rate RHYTHM: regular rhythm Extremity: GENERAL: Yes normal exam except as noted Neuro: COMMON NORMALS: patient oriented x3 and moves all extremities SENSORIUM/ORIENTATION: Yes alert GAIT: Yes Normal gait present Skin: GENERAL SKIN EXAM: no erythema Course Vital Signs: Vital signs: Vital Signs Temperature 98.3 F 02/05/25 14:21 Pulse Rate 69 02/05/25 17:22 Respiratory Rate 16 02/05/25 17:22 Blood Pressure 134/87 02/05/25 17:22 Pulse Oximetry 93 02/05/25 17:22 Oxygen Delivery Me thod Room Air 02/05/25 14:21 MDM - Wound/Laceration Medical Decision Making Patient is well-appearing nontoxic in no acute distress. Patient's vital signs are stable patient is afebrile. 65-year-old male patient presents to the emergency department with tenderness and redness to his right lower leg. Patient states he thinks he may have cellulitis to this leg as he has had frequent cases of cellulitis in the past. Patient denies any calf tenderness or calf swelling. Patient denies any history of blood clots. Patient denies any history or any current chest pain or shortness of breath patient is afebrile I did order venous ultrasound to rule out DVT this was negative for DVT. Patient's findings are consistent with cellulitis. I will go ahead and start patient on antibiotics at this time. Patient is neurovascularly intact distally. There is no evidence of evidence of drainable abscess. I discussed return precautions home care and follow-up with patient patient is medically cleared and appropriate for discharge Lab Data Radiology Impressions Venous Duplex 02/05/25 16:10 IMPRESSION: No evidence of deep vein thrombosis. All radiology interpretation(s) finalized by discharge Discharge Plan Discharge Patient Disposition: Home Clinical Impression: Cellulitis Qualifiers: Site of cellulitis: extremity Site of cellulitis of extremity: lower extremity Laterality: right Qualified Code(s): L03.115 - Cellulitis of right lower limb Condition: Stable Prescriptions: New clindamycin HCl [Cleocin HCl] 300 mg capsule 300 mg PO BID 7 Days Qty: 14 0RF No Action aspirin 81 mg tablet,chewable 81 mg PO DAILY duloxetine [Cymbalta] 60 mg capsule,delayed release(DR/EC) 60 mg PO DAILY 90 Days Qty: 90 2RF Proscar 5 mg tablet 5 mg PO DAILY 90 Days Qty: 90 2RF meloxicam 7.5 mg tablet 7.5 mg PO BIDWMEAL 90 Days Qty: 180 2RF omeprazole 40 mg capsule,delayed release(DR/EC) 40 mg PO DAILY 90 Days Qty: 90 2RF lisinopril-hydrochlorothiazide 20-12.5 mg tablet 1 tab PO DAILY 90 Days Qty: 90 2RF prednisone 20 mg tablet 20 mg PO DAILY 7 Days Qty: 15 0RF Rx Instructions: 60mg daily for 3 days 40mg daily for 2 days 20mg daily for 2 days omega-3 fatty acids [Fish Oil Concentrate] 1,000 mg capsule 1,000 mg PO DAILY ascorbic acid (vitamin C) [Vitamin C] 1,000 mg Tablet 1,000 mg PO DAILY Discharge Orders: Discharge ED (Routine); Ordered 02/05/25 Ordered By: Nicol Carroll Referrals: Shruthi Sim MD [Primary Care Provider, Family Practice] Discharge Diet: Advance as tolerated Discharge Activity: Increase activity as tolerated Patient Instructions: Opioid Safety, Pain Management Activity Restrictions/Additional Instructions: Please follow discharge instructions as discussed Please take meds as prescribed Pleas follow up with PCP for recheck Return to ER with any worsening of symptoms or concerns Print Language: Upper Sorbian Coding Level of Care Code ED Warning Coordination Meteorologist for Wade Barros
[2025-02-05 17:22] VITALS: BP 134/87; PULSE 69; RESP 16; O2SAT 93
== END 2025-02-05 17:21 | disposition home or self-care (01) ==
PROVIDERS: Emergency Provider Registered Nurse; PCP Family Medicine
DX: L03.115 Cellulitis of right lower limb (principal); Z79.82 Long term (current) use of aspirin; E78.5 Hyperlipidemia, unspecified; I10 Essential (primary) hypertension; Z86.73 Personal history of transient ischemic attack (TIA), and cerebral infarction without residual deficits
CPT/HCPCS: 93971; 99284

== ENCOUNTER → 2025-02-15 10:54 | Outpatient (BNVA) | payer MEDICARE, MEDICAID, SELFPAY | PROVIDERS: PCP Family Medicine; Visit Provider Family Medicine | DX: I10 Essential (primary) hypertension (principal); E78.1 Pure hyperglyceridemia; R73.03 Prediabetes | CPT/HCPCS: 80048; 80061; 83036 ==

== ENCOUNTER → 2025-08-16 10:42 | Outpatient (BNVA) | payer MEDICARE, MEDICAID, SELFPAY | PROVIDERS: PCP Family Medicine; Visit Provider Family Medicine | DX: R73.03 Prediabetes (principal); I10 Essential (primary) hypertension | CPT/HCPCS: 80048; 83036 ==